=== PATIENT | male | born 1985 | race Caucasian/White ===

== ENCOUNTER 2016-08-25 18:58 | Emergency (ER) | payer SELFPAY ==
[~2016-08-25] VITALS: Ht 175.3 cm; Wt 88.0 kg
[~2016-08-25 18:58] MED LIST: ALBU.5I NEB; LEVA750T PO; PRED20 PO; VENTAER INH
[2016-08-25 19:09] VITALS: BP 109/70; PULSE 82; RESP 24; TEMP 99.1; O2SAT 100
--- NOTE | 2016-08-25 19:10 | PD ---
HPI Chief Complaint: Respiratory Distress Time Seen by Provider: 19:03 Travel History International Travel<30 days: No Contact w/Intl Traveler<30days: No Traveled to known affect area: No History of Present Illness HPI 31-year-old male with history of asthma brought in by EMS from work for an asthma attack. Patient works as a social organization professor at a restaurant. He states that he had worsening shortness of breath throughout the day today. He was given 3 albuterol treatments and IV Solu-Medrol by EMS, and upon arrival to the emergency department he reports feeling much better. He denies fevers, chills, cough, or recent illness. He smokes about a half pack of cigarettes daily. PFSH Past Medical History Hx Anticoagulant Therapy: No Asthma: Yes Cardiovascular Problems: No Chemotherapy: No Cerebrovascular Accident: No Diabetes: No Diminished Hearing: No Respiratory: Yes (ASTHMA) Past Surgical History Hysterectomy: No Oral Surgery: Yes (Jaw surgery ) Social History Alcohol Use: Yes (OCC) Tobacco Use: Yes (1 PPD) Substance Use: Yes (VICODIN) Allergies-Medications (Allergen,Severity, Reaction): Coded Allergies: No Known Allergies (Unverified , 08/25/16) Reported Meds & Prescriptions Reported Meds & Active Scripts Active Reported Suboxone Sublingual Film (Buprenorphine-Naloxone Sublingual Film) 2-0.5 Mg Film 1 Film SL Unique ID number required: Albuterol Neb (Albuterol Sulfate) 2.5 Mg/0.5 Ml Neb 2.5 Mg NEB TID NEB PRN Note: The Albuterol Sulfate Inhalation Solution is concentrated and must be diluted. Read complete instructions carefully before using. Review of Systems Except as stated in HPI: all other systems reviewed are Neg Physical Exam Narrative GENERAL: Well-developed, well-nourished, comfortable, no acute distress, speaking full sentences. SKIN: Focused skin assessment warm/dry. HEAD: Atraumatic. Normocephalic. EYES: Pupils equal and round. No scleral icterus. No injection or drainage. ENT: Mucous membranes pink and moist. NECK: Trachea midline. No JVD. CARDIOVASCULAR: Regular rate and rhythm. No murmur appreciated. RESPIRATORY: No accessory muscle use. Mild inspiratory and expiratory wheezes bilaterally. No rales or rhonchi. Breath sounds equal bilaterally. Speaking full sentences. GASTROINTESTINAL: Abdomen soft, non-tender, nondistended. Hepatic and splenic margins not palpable. NEUROLOGICAL: Awake and alert. No obvious cranial nerve deficits. Motor grossly within normal limits. Normal speech. PSYCHIATRIC: Appropriate mood and affect; insight and judgment normal. Data Data Last Documented VS Vital Signs Date Time Temp Pulse Resp B/P Pulse Ox O2 Delivery O2 Flow Rate FiO2 08/25/16 19:13 82 24 100 08/25/16 19:09 99.1 109/70 Orders Chest, Single Ap (08/25/16 ) Albuterol-Ipratropium Neb (Duoneb Neb) (08/25/16 19:15) [facility] Medical Decision Making Medical Screen Exam Complete: Yes Emergency Medical Condition: Yes Medical Record Reviewed: Yes Differential Diagnosis Asthma exacerbation, pneumonia, bronchitis, pneumothorax, PE unlikely Narrative Course Patient was counseled on smoking cessation. Vital signs reviewed. Chest x-ray: No acute disease. No significant change has occurred. The patient was given 3 DuoNeb treatments here in the emergency department with significant improvement in symptoms. He was given 3 albuterol treatments by EMS as well as IV Solu-Medrol. He feels well enough to be discharged home. He is in no respiratory distress. No retractions. States that he tried to qualify for patient assistance the last time he was here, however he does not qualify. I will give him the information to the [facility] to follow -up with. I will give him a prescription for albuterol nebulizers as he has a nebulizer machine at home as well as prednisone for the next 5 days. He was informed on when to return to the emergency department. He verbalizes understanding and agreement with plan. Diagnosis Primary Impression: Asthma exacerbation Referrals: [facility] 3 days Additional Instructions: Follow-up with a primary care physician this week. Return to the emergency department for worsening symptoms or any other concerns. Scripts Albuterol 18 GM Inh (Ventolin Hfa 18 GM Inh)90 Mcg/Act Aer2 Puff INH Q4-6H PRN ( SHORTNESS OF BREATH) #1 INHALER Ref 0 Prov:Angel Medina MD 08/25/16 Prednisone 50 Mg Tab50 Mg PO DAILY 5 Days Ref 0 Prov:Angel Medina MD 08/25/16 Albuterol Neb 2.5 Mg/3 Ml Neb2.5 Mg NEB Q4HR NEB PRN (SHORTNESS OF BREATH) #60 NEBULE Ref 0 Prov:Angel Medina MD 08/25/16 Disposition: 01 DISCHARGE HOME Condition: Stable Angel Medina MD Aug 25, 2016 19:10
[2016-08-25] MEDS: RESP: ALBUTEROL 2.5 MG/IPRATROPIUM 0.5 MG NEB (SCH) INH ×2 (19:18→19:19)
[2016-08-25] MEDS ORDERED: SUBO2MIS SL (19:19)
--- NOTE | 2016-08-25 19:27 | RADHPO ---
EXAM DATE/TIME: 08/25/2016 19:15 [facility] COMPARISON: CHEST SINGLE AP, March 30, 2016, 14:19. INDICATIONS : Patient states cough. MEDICAL HISTORY : None. SURGICAL HISTORY : None. ENCOUNTER: Initial ACUITY: 2 days PAIN SCORE: 2/10 LOCATION: Bilateral chest FINDINGS: A single view of the chest demonstrates the lungs to be symmetrically aerated without evidence of mas s, infiltrate or effusion. The cardiomediastinal contours are unremarkable. Osseous structures are intact. CONCLUSION: No acute disease. No significant change has occurred. Tien Wall MD on August 25, 2016 at 19:26 Board Certified Radiologist. This report was verified electronically.
[2016-08-25] MEDS ORDERED: VENTAER INH (20:06)
[2016-08-25] MEDS ORDERED: PRED50 PO (20:06)
[2016-08-25] MEDS ORDERED: ALBU0.08 NEB (20:06)
[2016-08-25] MEDS ORDERED: ALBUTEROL SULFATE 90 MCG/ACT HFA 8 GM INHALER INH ONE (20:15)
[2016-08-25 20:31] VITALS: BP 125/72
== END 2016-08-25 21:05 | disposition home or self-care (01) ==
LOC: PHED 18:58
DX: J45.901 Unspecified asthma with (acute) exacerbation (principal); F17.200 Nicotine dependence, unspecified, uncomplicated; Z79.899 Other long term (current) drug therapy; Z79.51 Long term (current) use of inhaled steroids
CPT/HCPCS: 71010; 94640; 94664; 99283

== ENCOUNTER 2016-09-12 22:17 | Emergency (ER) | payer SELFPAY ==
[~2016-09-12] VITALS: Ht 175.3 cm; Wt 91.0 kg
[~2016-09-12 22:17] MED LIST changes: +ALBU0.08 NEB; -LEVA750T PO; -PRED20 PO; +PRED50 PO; +SUBO2MIS SL
[2016-09-12 22:19] VITALS: BP 128/64; PULSE 106; RESP 22; TEMP 99.7; O2SAT 95
[2016-09-12 22:58] VITALS: O2SAT 93
[2016-09-12] MEDS ORDERED: SODIUM CHLORIDE 0.9% FLUSH 10 ML FLUSH IVF PRN (23:00)
[2016-09-12] MEDS ORDERED: methylPREDNISolone SOD SUCC 125 MG/2 ML VIAL IVP ONE (23:00)
--- NOTE | 2016-09-12 23:02 | PD ---
HPI Chief Complaint: Respiratory Symptoms Time Seen by Provider: 22:55 Travel History International Travel<30 days: No Contact w/Intl Traveler<30days: No Traveled to known affect area: No History of Present Illness HPI The patient is a 31-year-old male with a history of asthma and tobacco abuse who for the past few days has been wheezing. He took his nebulizer machine at home and one pill of a leftover prednisone tablet and states it is not helping and he came into the emergency department. He denies any fever but does have sweats at home. He smokes one pack a day normally. He denies any nausea, vomiting or diarrhea. PFSH Past Medical History Hx Anticoagulant Therapy: No Asthma: Yes Cardiovascular Problems: No Chemotherapy: No Cerebrovascular Accident: No Diabetes: No Diminished Hearing: No Respiratory: Yes (ASTHMA) Tetanus Vaccination: < 5 Years Influenza Vaccination: No Past Surgical History Hysterectomy: No Oral Surgery: Yes (JAW SURGERY) Social History Alcohol Use: No (NEVER) Tobacco Use: Yes (1 PPD) Substance Use: Yes (VICODIN) Allergies-Medications (Allergen,Severity, Reaction): Coded Allergies: No Known Allergies (Unverified , 09/12/16) Reported Meds & Prescriptions Reported Meds & Active Scripts Active Ventolin Hfa 18 GM Inh (Albuterol Sulfate) 90 Mcg/Act Aer 2 Puff INH Q4-6H PRN Albuterol Neb (Albuterol Sulfate) 2.5 Mg/3 Ml Neb 2.5 Mg NEB Q4HR NEB PRN Review of Systems Except as stated in HPI: all other systems reviewed are Neg Physical Exam Narrative GENERAL: The patient is alert, oriented 3 in slight respiratory distress. His vital signs show respirations of 22 and heart rate of 106 and temperature 99.7 but are otherwise normal. SKIN: Focused skin assessment warm/dry. HEAD: Atraumatic. Normocephalic. EYES: Pupils equal and round. No scleral icterus. No injection or drainage. ENT: No nasal bleeding or discharge. Mucous membranes pink and moist. NECK: Trachea midline. No JVD. CARDIOVASCULAR: Regular rate and rhythm. No murmur appreciated. RESPIRATORY: No accessory muscle use. Bilateral wheezes are heard in all lung toure. Breath sounds equal bilaterally. GASTROINTESTINAL: Abdomen soft, non-tender, nondistended. Hepatic and splenic margins not palpable. MUSCULOSKELETAL: No obvious deformities. No clubbing. No cyanosis. No edema. NEUROLOGICAL: Awake and alert. No obvious cranial nerve deficits. Motor grossly within normal limits. Normal speech. PSYCHIATRIC: Appropriate mood and affect; insight and judgment normal. Data Data Last Documented VS Vital Signs Date Time Temp Pulse Resp B/P Pulse Ox O2 Delivery O2 Flow Rate FiO2 09/12/16 23:20 20 96 Nasal Cannula 2 09/12/16 22:19 99.7 106 128/64 Orders Complete Blood Count With Diff (09/12/16 22:55) Basic Metabolic Panel (Bmp) (09/12/16 22:55) Iv Access Insert/Monitor (09/12/16 22:55) Ecg Monitoring (09/12/16 22:55) Oximetry (09/12/16 22:55) Oxygen Administration (09/12/16 22:55) Chest, Pa & Lat (09/12/16 22:55) Sodium Chloride 0.9% Flush (Ns Flush) (09/12/16 23:00) Methylprednisolone So Succ Inj (Solumedr (09/12/16 23:00) Albuterol-Ipratropium Neb (Duoneb Neb) (09/12/16 23:00) Labs Laboratory Tests Test 09/12/16 23:05 White Blood Count 9.2 TH/MM3 Red Blood Count 4.81 MIL/MM3 Hemoglobin 14.7 GM/DL Hematocrit 41.3 % Mean Corpuscular Volume 85.8 FL Mean Corpuscular Hemoglobin 30.5 PG Mean Corpuscular Hemoglobin 35.6 % Concent Red Cell Distribution Width 13.0 % Platelet Count 203 TH/MM3 Mean Platelet Volume 7.7 FL Neutrophils (%) (Auto) 84.5 % Lymphocytes (%) (Auto) 9.1 % Monocytes (%) (Auto) 2.8 % Eosinophils (%) (Auto) 3.4 % Basophils (%) (Auto) 0.2 % Neutrophils # (Auto) 7.8 TH/MM3 Lymphocytes # (Auto) 0.8 TH/MM3 Monocytes # (Auto) 0.3 TH/MM3 Eosinophils # (Auto) 0.3 TH/MM3 Basophils # (Auto) 0.0 TH/MM3 CBC Comment DIFF FINAL Differential Comment Sodium Level 140 MEQ/L Potassium Level 3.5 MEQ/L Chloride Level 104 MEQ/L Carbon Dioxide Level 27.8 MEQ/L Anion Gap 8 MEQ/L Blood Urea Nitrogen 10 MG/DL Creatinine 0.93 MG/DL Estimat Glomerular Filtration 94 ML/MIN Rate Random Glucose 99 MG/DL Calcium Level 9.2 MG/DL MDM Medical Decision Making Medical Screen Exam Complete: Yes Emergency Medical Condition: Yes Medical Record Reviewed: Yes Interpretation(s) The chest x-ray shows no acute cardiopulmonary disease. The CBC is normal. The basic metabolic profile is normal. Differential Diagnosis COPD with acute exacerbation, acute asthma, pneumonia, bronchitis Narrative Course The patient appears to have asthma with bronchitis. It is now 12:19 AM and he is still wheezing. He feels much better at this time however. Diagnosis Primary Impression: Acute asthma Additional Impression: Bronchitis Additional Instructions: As we discussed, discontinue smoking. Take the prednisone one tablet twice daily for 4 days followed by one tablet once daily for 4 days. Med/Other Pt SpecificInfo: Prescription(s) given Disposition: 01 DISCHARGE HOME Condition: Stable Arnie Astudillo MD Sep 12, 2016 23:02
[2016-09-12] MEDS: RESP: ALBUTEROL 2.5 MG/IPRATROPIUM 0.5 MG NEB (SCH) INH (23:06)
[2016-09-12 23:20] VITALS: RESP 20; O2SAT 96
[2016-09-12 23:28] LABS: AUTOMATED NEUTROPHIL # 7.8 TH/MM3 (1.8-7.7); BASOPHIL % 0.2 % (0.0-2.0); EOSINOPHIL # 0.3 TH/MM3 (0-0.4); EOSINOPHIL % 3.4 % (0.0-4.0); HEMATOCRIT 41.3 % (39.0-51.0); HEMO FLAGS DIFF FINAL; LYMPH % 9.1 % (9.0-44.0); LYMPHOCYTE # 0.8 TH/MM3 (1.0-4.8); MEAN CELL VOLUME 85.8 FL (80.0-100.0); MEAN CORPUSCULAR HEMOGLOBIN 30.5 PG (27.0-34.0); MEAN CORPUSCULAR HGB CONC 35.6 % (32.0-36.0); MONO % 2.8 % (0.0-8.0); NEUT % 84.5 % (16.0-70.0); PLATELET COUNT 203 TH/MM3 (150-450); RED BLOOD COUNT 4.81 MIL/MM3 (4.50-5.90); WHITE BLOOD COUNT 9.2 TH/MM3 (4.0-11.0)
[2016-09-12 23:41] LABS: BICARBONATE 27.8 MEQ/L (21.0-32.0); POTASSIUM 3.5 MEQ/L (3.5-5.1)
--- NOTE | 2016-09-13 00:03 | RADRPT ---
EXAM DATE/TIME: 09/12/2016 23:42 [facility] COMPARISON: CHEST SINGLE AP, August 25, 2016, 19:15. INDICATIONS : Short of breath. Right side chest pain. MEDICAL HISTORY : None. SURGICAL HISTORY : None. ENCOUNTER: Initial ACUITY: 1 day PAIN SCORE: 6/10 LOCATION: Right chest FINDINGS: PA and lateral views of the chest demonstrate the lungs to be symmetrically aerated without evidence of mass, infiltrate or effusion. The cardiomediastinal contours are unremarkable. Osseous structure s are intact. CONCLUSION: Normal examination for a patient of this age. No significant change has occurred. Tien Wall MD on September 13, 2016 at 0:00 Board Certified Radiologist. This report was verified electronically.
[2016-09-13] MEDS ORDERED: ALBUTEROL SULFATE 90 MCG/ACT HFA 8 GM INHALER INH ONE (00:30)
[2016-09-13] MEDS ORDERED: ALBUTEROL SULFATE 90 MCG/ACT HFA 18 GM INHALER INH ONE (00:30)
[2016-09-13] MEDS ORDERED: PRED50 PO (00:53)
== END 2016-09-13 01:02 | disposition home or self-care (01) ==
LOC: NEPC 22:17
DX: J45.909 Unspecified asthma, uncomplicated (principal); J40 Bronchitis, not specified as acute or chronic; F17.210 Nicotine dependence, cigarettes, uncomplicated
CPT/HCPCS: 71020; 80048; 85025; 94640; 94664; 96374; 99283; J2930

== ENCOUNTER 2017-02-18 22:47 | Emergency (ER) | payer SELFPAY ==
[~2017-02-18] VITALS: Ht 175.3 cm; Wt 90.0 kg
[~2017-02-18 22:47] MED LIST changes: -ALBU.5I NEB; -SUBO2MIS SL
[2017-02-18 22:55] VITALS: BP 113/73; PULSE 90; RESP 20; TEMP 98.8; O2SAT 96
--- NOTE | 2017-02-19 00:36 | PD ---
HPI Chief Complaint: Respiratory Distress Time Seen by Provider: 00:33 Travel History International Travel<30 days: No Contact w/Intl Traveler<30days: No Traveled to known affect area: No History of Present Illness HPI 31-year-old male with history of asthma and tobaccoism presents to the emergency department for 2 weeks of progressively worsening shortness of breath and wheezing. Patient reports he ran out of his albuterol solution for his nebulizer and his inhaler is empty. Patient's had no fever no chills no nausea no vomiting no pleuritic chest pain no chest pain no abdominal pain and no injury. Patient denies any exposure to known allergens. PFSH Past Medical History Narrative Medical Asthma, tobacco use, nursing notes reviewed Hx Anticoagulant Therapy: No Asthma: Yes Cardiovascular Problems: No Chemotherapy: No Cerebrovascular Accident: No Diabetes: No Diminished Hearing: No Respiratory: Yes (ASTHMA) Past Surgical History Hysterectomy: No Oral Surgery: Yes (JAW SURGERY) Social History Alcohol Use: No (NEVER) Tobacco Use: Yes (1 PPD) Substance Use: Yes (VICODIN) Allergies-Medications (Allergen,Severity, Reaction): Coded Allergies: No Known Allergies (Unverified , 09/12/16) Reported Meds & Prescriptions Reported Meds & Active Scripts Active Ventolin Hfa 18 GM Inh (Albuterol Sulfate) 90 Mcg/Act Aer 2 Puff INH Q4-6H PRN Albuterol Neb (Albuterol Sulfate) 2.5 Mg/3 Ml Neb 2.5 Mg NEB Q4HR NEB PRN Review of Systems Except as stated in HPI: all other systems reviewed are Neg Physical Exam Narrative GENERAL: Well-developed well-nourished male in obvious mild respiratory distress no stridor no hoarseness SKIN: Warm and dry. HEAD: Normocephalic. EYES: No scleral icterus. No injection or drainage. NECK: Supple, trachea midline. No JVD or lymphadenopathy. CARDIOVASCULAR: Regular rate and rhythm without murmurs, gallops, or rubs. RESPIRATORY: Breath sounds equal bilaterally few diffuse end expiratory wheeze. No accessory muscle use. GASTROINTESTINAL: Abdomen soft, non-tender, nondistended. MUSCULOSKELETAL: No cyanosis, or edema. BACK: Nontender without obvious deformity. No CVA tenderness. Data Data Last Documented VS Vital Signs Date Time Temp Pulse Resp B/P (MAP) Pulse Ox O2 Delivery O2 Flow Rate FiO2 02/19/17 00:45 73 20 104/78 (87) 96 Room Air 02/18/17 22:55 98.8 Orders Orders Iv Access Insert/Monitor (02/19/17 00:33) Ecg Monitoring (02/19/17 00:33) Oxygen Administration (02/19/17 00:33) Chest, Single Ap (02/19/17 00:33) Sodium Chloride 0.9% Flush (Ns Flush) (02/19/17 00:45) Methylprednisolone So Succ Inj (Solumedr (02/19/17 00:45) Albuterol-Ipratropium Neb (Duoneb Neb) (02/19/17 00:45) MDM Medical Decision Making Medical Screen Exam Complete: Yes Emergency Medical Condition: Yes Medical Record Reviewed: Yes Differential Diagnosis Exacerbation asthma bronchitis medication refill Narrative Course Patient administered 3 DuoNeb updrafts Solu-Medrol and medication refills provided After updraft treatment and Solu-Medrol administration patient is clinically markedly improved and desirous of being discharged to home; patient given refill prescriptions and encouraged to follow-up with primary care provider. Diagnosis Primary Impression: Acute asthma Additional Impression: Medication refill [facility]errals: [facility] Patient Instructions: General Instructions Additional Instructions: Increase fluid hydration Take medications as prescribed Follow-up with primary care provider Return to the emergency department for any concerns or change in condition Med/Other Pt SpecificInfo: Prescription(s) given Scripts Prednisone (Prednisone) 50 Mg Tab 50 MG PO DAILY, #5 TAB 0 Refills Prov: Diane Washington MD 02/19/17 Albuterol 18 GM Inh (Ventolin Hfa 18 GM Inh) 90 Mcg/Act Aer 2 PUFF INH Q4-6H Y for SHORTNESS OF BREATH, #1 INHALER 0 Refills Prov: Diane Washington MD 02/19/17 Albuterol Neb (Albuterol Neb) 2.5 Mg/3 Ml Neb 2.5 MG NEB Q4HR NEB Y for SHORTNESS OF BREATH, #60 NEBULE 0 Refills Prov: Diane Washington MD 02/19/17 Disposition: 01 DISCHARGE HOME Condition: Stable Diane Washington MD Feb 19, 2017 00:36
[2017-02-19 00:45] VITALS: BP 104/78; PULSE 73; RESP 20; O2SAT 96
[2017-02-19] MEDS ORDERED: methylPREDNISolone SOD SUCC 125 MG/2 ML VIAL IV PUSH ONE (00:45)
[2017-02-19] MEDS ORDERED: SODIUM CHLORIDE 0.9% FLUSH 10 ML FLUSH IVF PRN (00:45)
[2017-02-19] MEDS: RESP: ALBUTEROL 2.5 MG/IPRATROPIUM 0.5 MG NEB (SCH) INH ×3 (00:56→01:11)
--- NOTE | 2017-02-19 00:57 | RADRPT ---
EXAM DATE/TIME: 02/19/2017 00:37 [facility] COMPARISON: CHEST PA & LAT, September 12, 2016, 23:42. INDICATIONS : Shortness of breath. MEDICAL HISTORY : Asthma. SURGICAL HISTORY : None. ENCOUNTER: Initial ACUITY: 2 weeks PAIN SCORE: 0/10 LOCATION: Bilateral chest FINDINGS: A single view of the chest demonstrates the lungs to be symmetrically aerated without evidence of mas s, infiltrate or effusion. The cardiomediastinal contours are unremarkable. Osseous structures are intact. CONCLUSION: No evidence of acute cardiopulmonary disease. Boom Del Rosario MD on February 19, 2017 at 0:55 Board Certified Radiologist. This report was verified electronically.
[2017-02-19] MEDS ORDERED: VENTAER INH (01:44)
[2017-02-19] MEDS ORDERED: ALBU0.08 NEB (01:44)
[2017-02-19] MEDS ORDERED: PRED50 PO (01:45)
[2017-02-19] MEDS ORDERED: ALBUTEROL SULFATE 90 MCG/ACT HFA 8 GM INHALER INH ONE (02:00)
[2017-02-19 02:20] VITALS: BP 106/68
== END 2017-02-19 02:27 | disposition home or self-care (01) ==
LOC: PHED 22:47
DX: J45.909 Unspecified asthma, uncomplicated (principal); F17.210 Nicotine dependence, cigarettes, uncomplicated
CPT/HCPCS: 71010; 94640; 94664; 96374; 99285; J2930

== ENCOUNTER 2017-03-20 01:55 | Inpatient (IN) | payer SELFPAY ==
[2017-03-20] VITALS (14 sets, daily range): BP systolic 122–165; BP diastolic 64–98; PULSE 88–125; RESP 18–36; TEMP 95.4–97.6; O2SAT 89–100
[~2017-03-20] VITALS: Ht 175.3 cm; Wt 77.0 kg
[2017-03-20] MEDS ORDERED: LORazepam 2 MG/ML VIAL ONE (02:04)
[2017-03-20] MEDS ORDERED: SODIUM CHLORIDE 0.9% FLUSH 10 ML FLUSH IVF PRN (02:15)
[2017-03-20] MEDS ORDERED: LORazepam 2 MG/ML VIAL IV PUSH ONE (02:15)
[2017-03-20] MEDS: RESP: ALBUTEROL 2.5 MG/IPRATROPIUM 0.5 MG NEB (SCH) INH ×2 (02:22→02:23)
[2017-03-20 02:27] LABS: AUTOMATED NEUTROPHIL # 4.3 TH/MM3 (1.8-7.7); BASOPHIL # 0.1 TH/MM3 (0-0.2); BASOPHIL % 0.4 % (0.0-2.0); EOSINOPHIL # 0.9 TH/MM3 (0-0.4); EOSINOPHIL % 7.2 % (0.0-4.0); HEMATOCRIT 46.5 % (39.0-51.0); LYMPH % 50.1 % (9.0-44.0); LYMPHOCYTE # 6.1 TH/MM3 (1.0-4.8); MEAN CELL VOLUME 88.5 FL (80.0-100.0); MEAN CORPUSCULAR HEMOGLOBIN 31.4 PG (27.0-34.0); MEAN CORPUSCULAR HGB CONC 35.5 % (32.0-36.0); MONO % 6.8 % (0.0-8.0); NEUT % 35.5 % (16.0-70.0); PLATELET COUNT 230 TH/MM3 (150-450); RED BLOOD COUNT 5.25 MIL/MM3 (4.50-5.90); RED CELL DISTRIBUTION WIDTH 13.6 % (11.6-17.2); WHITE BLOOD COUNT 12.1 TH/MM3 (4.0-11.0)
[2017-03-20 02:28] LABS: HEMO FLAGS AUTO DIFF
[2017-03-20 02:37] LABS: ANION GAP 8 MEQ/L (5-15); BICARBONATE 28.6 MEQ/L (21.0-32.0); BLOOD UREA NITROGEN 18 MG/DL (7-18); CHLORIDE 105 MEQ/L (98-107); GLOMERULAR FILTRATION RATE 98 ML/MIN (>89); MAGNESIUM 2.4 MG/DL (1.5-2.5); POTASSIUM 3.8 MEQ/L (3.5-5.1); SODIUM (NA) 142 MEQ/L (136-145)
[2017-03-20 02:41] LABS: CREATINE KINASE 129 U/L (39-308)
--- NOTE | 2017-03-20 02:42 | RADRPT ---
EXAM DATE/TIME: 03/20/2017 02:15 [facility] COMPARISON: CHEST SINGLE AP, February 19, 2017, 0:37. INDICATIONS : Shortness of breath. MEDICAL HISTORY : Asthma. SURGICAL HISTORY : None. ENCOUNTER: Initial ACUITY: 1 day PAIN SCORE: 0/10 LOCATION: Bilateral chest FINDINGS: A single view of the chest demonstrates the lungs to be symmetrically aerated without evidence of mas s, infiltrate or effusion. The cardiomediastinal contours are unremarkable. Osseous structures are intact. CONCLUSION: No acute disease. Boom Connor MD on March 20, 2017 at 2:40 Board Certified Radiologist. This report was verified electronically.
[2017-03-20 02:54] LABS: CKMB 2.5 NG/ML (0.5-3.6)
--- NOTE | 2017-03-20 02:56 | PD ---
HPI Chief Complaint: Respiratory Distress Time Seen by Provider: 02:02 Travel History International Travel<30 days: No Contact w/Intl Traveler<30days: No Traveled to known affect area: No History of Present Illness HPI 31 yo M arrives by EMS 2/2 dyspnea. Pt has asthma. Three rounds albuterol en route helped marginally. + CP. Duration 2 weeks with worsening tonight. + smoking of tobacco. IV solumedrol helped marginally. EMS notes O2 sat for 94% on RA initially and increased to 100% at time of ER arrival. pt reports low back pain, chronic in nature. pt took suboxone this morning. PFSH Past Medical History Hx Anticoagulant Therapy: No Asthma: Yes Cardiovascular Problems: No Chemotherapy: No Cerebrovascular Accident: No Diabetes: No Diminished Hearing: No Respiratory: Yes (ASTHMA) Tetanus Vaccination: Unknown Influenza Vaccination: No Past Surgical History Hysterectomy: No Oral Surgery: Yes (JAW SURGERY) Social History Alcohol Use: No (NEVER) Tobacco Use: Yes (1 PPD) Substance Use: Yes (VICODIN) Allergies-Medications (Allergen,Severity, Reaction): Coded Allergies: No Known Allergies (Unverified Adverse Reaction, Unknown, 03/20/17) Reported Meds & Prescriptions Reported Meds & Active Scripts Active Ventolin Hfa 18 GM Inh (Albuterol Sulfate) 90 Mcg/Act Aer 2 Puff INH Q4-6H PRN Albuterol Neb (Albuterol Sulfate) 2.5 Mg/3 Ml Neb 2.5 Mg NEB Q4HR NEB PRN Ventolin Hfa 18 GM Inh (Albuterol Sulfate) 90 Mcg/Act Aer 2 Puff INH Q4-6H PRN Albuterol Neb (Albuterol Sulfate) 2.5 Mg/3 Ml Neb 2.5 Mg NEB Q4HR NEB PRN Review of Systems Except as stated in HPI: all other systems reviewed are Neg Physical Exam Narrative GENERAL: 31 yo M, WNWD, moderate to severe respiratory distress SKIN: Warm and dry. HEAD: Atraumatic. Normocephalic. EYES: Pupils equal and round. No scleral icterus. No injection or drainage. ENT: No nasal bleeding or discharge. Mucous membranes pink and moist. NECK: Trachea midline. No JVD. CARDIOVASCULAR: Tachycardia. Regular rhythm. RESPIRATORY: Tachypnea. Wheezing. Accessory muscle use. GASTROINTESTINAL: Abdomen soft, non-tender, nondistended. Hepatic and splenic margins not palpable. MUSCULOSKELETAL: Extremities without clubbing, cyanosis, or edema. No obvious deformities. NEUROLOGICAL: Awake and alert. No obvious cranial nerve deficits. Motor grossly within normal limits. Five out of 5 muscle strength in the arms and legs. Normal speech. PSYCHIATRIC: Appropriate mood and affect; insight and judgment normal. Data Data Last Documented VS Vital Signs Date Time Temp Pulse Resp B/P (MAP) Pulse Ox O2 Delivery O2 Flow Rate FiO2 03/20/17 05:42 106 22 122/69 (86) 94 Nasal Cannula 3.00 03/20/17 02:49 60 03/20/17 02:04 97.3 VS reviewed Orders Orders Complete Blood Count With Diff (03/20/17 02:02) Basic Metabolic Panel (Bmp) (03/20/17 02:02) Magnesium (Mg) (03/20/17 02:02) Ckmb (Isoenzyme) Profile (03/20/17 02:02) Troponin I (03/20/17 02:02) Arterial Blood Gas (Abg) (03/20/17 02:02) Iv Access Insert/Monitor (03/20/17 02:02) Electrocardiogram (03/20/17 02:02) Ecg Monitoring (03/20/17 02:02) Oximetry (03/20/17 02:02) Oxygen Administration (03/20/17 02:02) Chest, Single Ap (03/20/17 02:02) Sodium Chloride 0.9% Flush (Ns Flush) (03/20/17 02:15) Albuterol-Ipratropium Neb (Duoneb Neb) (03/20/17 02:15) Resp Bipap / Cpap Non Invas Vt (03/20/17 02:02) Lorazepam Inj (Ativan Inj) (03/20/17 02:15) Lorazepam Inj (Ativan Inj) (03/20/17 02:04) CKMB (03/20/17 02:05) CKMB% (03/20/17 02:05) Drug Screen, Random Urine (03/20/17 05:46) Labs Laboratory Tests Test 03/20/17 02:05 03/20/17 02:24 White Blood Count 12.1 TH/MM3 Red Blood Count 5.25 MIL/MM3 Hemoglobin 16.5 GM/DL Hematocrit 46.5 % Mean Corpuscular Volume 88.5 FL Mean Corpuscular Hemoglobin 31.4 PG Mean Corpuscular Hemoglobin Concent 35.5 % Red Cell Distribution Width 13.6 % Platelet Count 230 TH/MM3 Mean Platelet Volume 7.8 FL Neutrophils (%) (Auto) 35.5 % Lymphocytes (%) (Auto) 50.1 % Monocytes (%) (Auto) 6.8 % Eosinophils (%) (Auto) 7.2 % Basophils (%) (Auto) 0.4 % Neutrophils # (Auto) 4.3 TH/MM3 Lymphocytes # (Auto) 6.1 TH/MM3 Monocytes # (Auto) 0.8 TH/MM3 Eosinophils # (Auto) 0.9 TH/MM3 Basophils # (Auto) 0.1 TH/MM3 CBC Comment AUTO DIFF Differential Total Cells Counted 100 Neutrophils % (Manual) 39 % Band Neutrophils % 6 % Lymphocytes % 36 % Monocytes % 4 % Eosinophils % 8 % Neutrophils # (Manual) 5.4 TH/MM3 Differential Comment FINAL DIFF MANUAL Atypical Lymphocytes 7 % Platelet Estimate NORMAL Platelet Morphology Comment NORMAL Blood Urea Nitrogen 18 MG/DL Creatinine 0.90 MG/DL Random Glucose 93 MG/DL Calcium Level 9.0 MG/DL Magnesium Level 2.4 MG/DL Sodium Level 142 MEQ/L Potassium Level 3.8 MEQ/L Chloride Level 105 MEQ/L Carbon Dioxide Level 28.6 MEQ/L Anion Gap 8 MEQ/L Estimat Glomerular Filtration Rate 98 ML/MIN Total Creatine Kinase 129 U/L Creatine Kinase MB 2.5 NG/ML Troponin I LESS THAN 0.02 NG/ML Blood Gas Ventilator Setting MDM Medical Decision Making Medical Screen Exam Complete: Yes Emergency Medical Condition: Yes Medical Record Reviewed: Yes Interpretation(s) CBC & BMP Diagram 03/20/17 02:05 Calcium Level 9.0, Magnesium Level 2.4 Tn < 0.02 Differential Diagnosis asthma, pna, ptx Narrative Course bipap started upon ED arrival ativan given pt on bipap for approx 3 hours with o2 sats approaching 100% pt ambulated in pod and o2 sat 96% on ra upon returning to room shortly thereafter desat to 86% on ra nc started admission to [facility] d/w dr contreras Diagnosis Primary Impression: Hypoxemia Additional Impression: Asthma Qualified Codes: J45.998 - Other asthma Admitting Information Admitting Physician Requests: Observation Abraham Ramos MD Mar 20, 2017 02:56
[2017-03-20 03:09] LABS: BLOOD GAS BASE EXCESS 1.6 mmol/L (-2-2); BLOOD GAS CARBOXYHEMOGLOBIN 1.8 % (0-4); BLOOD GAS HCO3 26 mmol/L (22-26); BLOOD GAS METHEMOGLOBIN 0.6 % (0-2); BLOOD GAS O2 HGB SATURATION 95 % (90-100); BLOOD GAS OXYGEN CONTENT 20.9 Vol % (12.0-20.0); BLOOD GAS PCO2 45 mmHg (38-42); BLOOD GAS PO2 92 mmHG (61-120); BLOOD GAS TOTAL HGB 15.6 G/DL (12.0-16.0); CRITICAL VALUE NO; TEMP CORR TO 98.6
[2017-03-20 03:10] LABS: DRAW SITE LT RADIAL; FIO2 50 %; NUMBER OF ARTERIAL PUNCTURES 1; OXYGEN DEVICE BIPAP; STAT YES; ULNAR PULSE PRESENT
[2017-03-20 03:19] LABS: ATYPICAL LYMPHOCYTES 7 % (0-0); BANDS 6 % (0-6); EOSINOPHILS 8 % (0-4); NEUTROPHIL # MANUAL DIFF 5.4 TH/MM3 (1.8-7.7); PLATELET ESTIMATE SMEAR NORMAL (NORMAL); PLATELET MORPHOLOGY NORMAL (NORMAL); POLYS (SEG NEUTROPHILS) 39 % (16-70); SCAN/DIFF FINAL DIFF MANUAL; WBC DIFF SAMPLE 100
[2017-03-20] MEDS ORDERED: LACTULOSE SYRUP 20 GM/30 ML CUP PO PRN (06:00)
[2017-03-20] MEDS ORDERED: MAGNESIUM HYDROXIDE SUSP 30 ML CUP PO PRN (06:00)
[2017-03-20] MEDS ORDERED: SENNOSIDES 8.6 MG TAB PO PRN (06:00)
[2017-03-20] MEDS ORDERED: BISACODYL 10 MG SUPP RECTAL PRN (06:00)
[2017-03-20] MEDS ORDERED: NALOXONE HCL 0.4 MG/ML AMP IV PUSH PRN (06:00)
[2017-03-20] MEDS ORDERED: SODIUM CHLORIDE 0.9% FLUSH 10 ML FLUSH IV FLUSH PRN (06:00)
[2017-03-20] MEDS ORDERED: AZITHROMYCIN 250 MG TAB PO SCH (06:00)
--- NOTE | 2017-03-20 06:49 | HHI.HP ---
HPI Service [facility] Primary Care Physician No Primary Care Physician Admission Diagnosis HYPOXEMIA Diagnoses: (1) Acute hypercapnic respiratory failure Chief Complaint: Shortness of breath Travel History International Travel<30 Days: No Contact w/Intl Traveler <30 Da: No Traveled to Known Affected Are: No History of Present Illness Mr. Glez is a 31 y/o male with a history of asthma who presented to the ED for shortness of breath. He states his symptoms have been going on for "a couple of weeks". Last night, his treatments at home failed to alleviate symptoms Denies fever, chills, nausea, vomiting, constipation, or diarrhea. Reports some lightheadedness The patient reports Suboxone use The patient has multiple pets including cat/kitten at home. Has had cat For about a year. The cat just had babies. Patient says he is allergic to the cat. Says the cat causes sneezing, itchy watery eyes if he is around too much. 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 He is sneezing in the room. Denies any chest pain. Denies any nausea or vomiting. Denies any fevers or chills. Review of Systems Except as stated in HPI: all other systems reviewed are Neg Past Family Social History Past Medical History Asthma . Past Surgical History Dental surgery . Reported Medications Nebulizers Inhaler . Allergies: Coded Allergies: No Known Allergies (Unverified Allergy, Unknown, 03/20/17) Active Ordered Medications Current Medications Medications (Trade) Dose Ordered Sig/Scot Route Start Time Stop Time Status Last Admin (NS Flush) 2 ml UNSCH PRN IV FLUSH 03/20/17 06:00 (NS Flush) 2 ml BID IV FLUSH 03/20/17 09:00 (Narcan Inj) 0.4 mg UNSCH PRN IV PUSH 03/20/17 06:00 (Milk Of Magnesia Liq) 30 ml Q12H PRN PO 03/20/17 06:00 (Senokot) 17.2 mg Q12H PRN PO 03/20/17 06:00 (Dulcolax Supp) 10 mg DAILY PRN RECTAL 03/20/17 06:00 (Lactulose Liq) 30 ml DAILY PRN PO 03/20/17 06:00 (Albuterol Neb) 2.5 mg Q2HR NEB PRN INH 03/20/17 06:00 (Deltasone) 40 mg DAILY PO 03/20/17 09:00 (Zithromax) 500 mg Taper DAILY PO 03/20/17 06:00 03/25/17 05:59 . Family History Denies family history of any significant illness Social History Tobacco: smokes 1/2 - 1 PPD Alcohol: denies Illicit Drugs: former illicit drug use, rare marijuana use Stay at home dad; has two dogs and a cat with kittens . Physical Exam Vital Signs Vital Signs Date Time Temp Pulse Resp B/P (MAP) Pulse Ox O2 Delivery O2 Flow Rate FiO2 03/20/17 06:15 03/20/17 05:42 106 22 122/69 (86) 94 Nasal Cannula 3.00 03/20/17 05:35 89 Room Air 03/20/17 05:31 94 Room Air 03/20/17 04:50 96 Nasal Cannula 3.00 03/20/17 03:56 98 20 163/86 (111) 98 BiPAP 03/20/17 02:49 95 22 139/81 (100) 99 BiPAP 60 03/20/17 02:10 100 50 03/20/17 02:07 99 BiPAP 50 03/20/17 02:04 97.3 165/98 (120) 03/20/17 01:59 125 36 94 Room Air Physical Exam GENERAL: This is a well-nourished, well-developed patient, in no apparent distress. SKIN: No rashes, ecchymoses or lesions. Cool and dry. HEAD: Atraumatic. Normocephalic. No temporal or scalp tenderness. EYES: Pupils equal round and reactive. Extraocular motions intact. No scleral icterus. No injection or drainage. ENT: Nose without bleeding, purulent drainage. Airway patent. NECK: Trachea midline. No JVD or lymphadenopathy. Supple, nontender, no meningeal signs. CARDIOVASCULAR: Regular rate and rhythm without murmurs, gallops, or rubs. RESPIRATORY: Bilateral wheezing. No rales, or rhonchi. GASTROINTESTINAL: Abdomen soft, non-tender, nondistended. No guarding. MUSCULOSKELETAL: Extremities without clubbing, cyanosis, or edema. No calf tenderness. NEUROLOGICAL: Awake and alert. Motor and sensory grossly within normal limits. Normal speech. . Laboratory Laboratory Tests Test 03/20/17 02:05 03/20/17 02:24 White Blood Count 12.1 Red Blood Count 5.25 Hemoglobin 16.5 Hematocrit 46.5 Mean Corpuscular Volume 88.5 Mean Corpuscular Hemoglobin 31.4 Mean Corpuscular Hemoglobin Concent 35.5 Red Cell Distribution Width 13.6 Platelet Count 230 Mean Platelet Volume 7.8 Neutrophils (%) (Auto) 35.5 Lymphocytes (%) (Auto) 50.1 Monocytes (%) (Auto) 6.8 Eosinophils (%) (Auto) 7.2 Basophils (%) (Auto) 0.4 Neutrophils # (Auto) 4.3 Lymphocytes # (Auto) 6.1 Monocytes # (Auto) 0.8 Eosinophils # (Auto) 0.9 Basophils # (Auto) 0.1 CBC Comment AUTO DIFF Differential Total Cells Counted 100 Neutrophils % (Manual) 39 Band Neutrophils % 6 Lymphocytes % 36 Monocytes % 4 Eosinophils % 8 Neutrophils # (Manual) 5.4 Differential Comment FINAL DIFF MANUAL Atypical Lymphocytes 7 Platelet Estimate NORMAL Platelet Morphology Comment NORMAL Blood Urea Nitrogen 18 Creatinine 0.90 Random Glucose 93 Calcium Level 9.0 Magnesium Level 2.4 Sodium Level 142 Potassium Level 3.8 Chloride Level 105 Carbon Dioxide Level 28.6 Anion Gap 8 Estimat Glomerular Filtration Rate 98 Total Creatine Kinase 129 Creatine Kinase MB 2.5 Troponin I LESS THAN 0.02 Blood Gas Puncture Site LT RADIAL Blood Gas Patient Temperature 98.6 Blood Gas HCO3 26 Blood Gas Base Excess 1.6 Blood Gas Oxygen Saturation 95 Arterial Blood pH 7.38 Arterial Blood Partial Pressure CO2 45 Arterial Blood Partial Pressure O2 92 Arterial Blood Oxygen Content 20.9 Arterial Blood Carboxyhemoglobin 1.8 Arterial Blood Methemoglobin 0.6 Blood Gas Hemoglobin 15.6 Oxygen Delivery Device BIPAP Blood Gas Ventilator Setting Blood Gas Inspired Oxygen 50 Date/Time Source Procedure Growth Status 03/20/17 06:00 Nasal Washing Influenza Types A,B Antigen (KEYON) - Final NEGATIVE FOR FLU A AND B ANTIGEN.... Complete Result Diagram: 03/20/1720403/20/17204 Imaging Last Impressions Chest X-Ray 03/20/17201 Signed Impressions: Service Date/Time: Monday, March 20, 2017 02:15 - CONCLUSION: No acute disease. Boom Connor MD . Caprini VTE Risk Assessment Caprini VTE Risk Assessment: No/Low Risk (score <= 1) Caprini Risk Assessment Model Point Value = 1 Point Value = 2 Point Value = 3 Point Value = 5 Age 41-60 Minor surgery BMI > 25 kg/m2 Swollen legs Varicose veins or History of unexplained or recurrent spontaneous Oral contraceptives or hormone replacement Sepsis (< 1 month) Serious lung disease, including pneumonia (< 1 month) Abnormal pulmonary function Acute myocardial infarction Congestive heart failure (< 1 month) History of inflammatory bowel disease Medical patient at bed rest Age 61-74 Arthroscopic surgery Major open surgery (> 45 min) Laparoscopic surgery (> 45 min) Malignancy Confined to bed (> 72 hours) Immobilizing plaster cast Central venous access Age >= 75 History of VTE Family history of VTE Factor V Leiden Prothrombin [id number] Lupus anticoagulant Anticardiolipin antibodies Elevated serum homocysteine Heparin-induced thrombocytopenia Other congenital or acquired thrombophilia Stroke (< 1 month) Elective arthroplasty Hip, pelvis, or leg fracture Acute spinal cord injury (< 1 month) Prophylaxis Regimen Total Risk Factor Score Risk Level Prophylaxis Regimen 0-1 Low Early ambulation 2 Moderate Order ONE of the following: *Sequential Compression Device (SCD) *Heparin 5000 units SQ BID 3-4 Higher Order ONE of the following medications: *Heparin 5000 units SQ TID *Enoxaparin/Lovenox 40 mg SQ daily (WT < 150 kg, CrCl > 30 mL/min) *Enoxaparin/Lovenox 30 mg SQ daily (WT < 150 kg, CrCl > 10-29 mL/min) *Enoxaparin/Lovenox 30 mg SQ BID (WT < 150 kg, CrCl > 30 mL/min) AND/OR *Sequential Compression Device (SCD) 5 or more Highest Order ONE of the following medications: *Heparin 5000 units SQ TID (Preferred with Epidurals) *Enoxaparin/Lovenox 40 mg SQ daily (WT < 150 kg, CrCl > 30 mL/min) *Enoxaparin/Lovenox 30 mg SQ daily (WT < 150 kg, CrCl > 10-29 mL/min) *Enoxaparin/Lovenox 30 mg SQ BID (WT < 150 kg, CrCl > 30 mL/min) AND *Sequential Compression Device (SCD) Assessment and Plan Problem List: (1) Acute hypercapnic respiratory failure ICD Code: J96.02 - Acute respiratory failure with hypercapnia Assessment and Plan //Acute hypercapnic respiratory failure -Chest x-ray review with no acute findings. - required BiPap in the ED -ABG reviewed with hypercapnia, PCO2 45 - Albuterol nebulizers q2h PRN shortness of breath. Prednisone taper. - recommend that the patient no longer home a cat/kittens, and quit smoking -Patient could benefit from Singulair, as well as an antihistamine such as Claritin upon going home. //Tobacco abuse. Cessation counseling strongly advised. Discussed Condition With Patient, ED physician. Physician Certification 2 Midnight Certification Type: Admission for Inpatient Services Order for Inpatient Services The services are ordered in accordance with Medicare regulations or non- Medicare payer requirements, as applicable. In the case of services not specified as inpatient-only, they are appropriately provided as inpatient services in accordance with the 2-midnight benchmark. Estimated LOS (days): 2 days is the estimated time the patient will need to remain in the hospital, assuming treatment plan goals are met and no additional complications. Post-Hospital Plan: Home Donnell Wasserman MD Mar 20, 2017 06:49
[2017-03-20] MEDS ORDERED: predniSONE 20 MG TAB PO SCH (09:00)
[2017-03-20] MEDS ORDERED: SODIUM CHLORIDE 0.9% FLUSH 10 ML FLUSH IV FLUSH SCH (09:00)
[2017-03-20] MEDS: RESP: ALBUTEROL 2.5 MG/3 ML NEB (PRN) INH ×2 (13:25→18:11)
--- NOTE | 2017-03-20 15:28 | EKG ---
Date Performed: 03/20/2017 Time Performed: 02:07:37 PTAGE: 31 years EKG: Sinus rhythm WITH SINUS ARRHYTHMIA NORMAL ECG NO PREVIOUS TRACING DOCTOR: Zaid Tena Interpretating Date/Time 03/20/2017 15:28:14
--- NOTE | 2017-03-20 18:59 | HHI.PR ---
Addendum to Inpatient Note Addendum Reason: Additional Documentation Additional Information The patient is awake and alert, not in respiratory distress. Denies shortness of breath, chest pain. States he was able to get up to the restroom without feeling short of breath or dyspneic. On exam the patient is awake alert oriented 3, nonacute distress lying in bed, lungs are clear to auscultation and have good air movement. Discussed with the patient and he would like to be discharged tonight. I will discharge him on Symbicort, Singulair, prednisone taper, albuterol inhaler and DuoNeb treatments as needed. Patient was advised on quitting smoking and to not have cats at home. Discharge patient to home Condition on discharge: Improved Regular Diet as tolerated Ad Sruthi activity Rx written: Budesonide-Formoterol Inh 80-4.5 Mcg/Act Aero 2 puffs inhaled every 12 hours. Montelukast 10 mg by mouth daily at bedtime. Prednisone 20 mg by mouth taper dose as directed. Follow-up with primary care physician Avila Oglesby MD Mar 20, 2017 18:59
[2017-03-20] MEDS ORDERED: ALBU0.08 NEB (19:41)
[2017-03-20] MEDS ORDERED: PRED20 PO (19:41)
[2017-03-20] MEDS ORDERED: VENTAER INH (19:41)
[2017-03-20] MEDS ORDERED: SYMB80AE INH (19:46)
[2017-03-20] MEDS ORDERED: MONT10TA2 PO (19:46)
--- NOTE | 2017-03-20 19:50 | HHI.DCPOC ---
Discharge Care Plan Diagnosis: (1) Acute hypercapnic respiratory failure (2) Asthma exacerbation (3) Hypoxemia Goals to Promote Your Health * To prevent worsening of your condition and complications * To maintain your health at the optimal level Directions to Meet Your Goals Take your medications as prescribed Follow your dietary instruction Follow activity as directed Keep your appointments as scheduled Take your immunizations and boosters as scheduled If your symptoms worsen call your PCP, if no PCP go to Urgent Care Center or Emergency Room Smoking is Dangerous to Your Health. Avoid second hand smoke Call the 24-hour hour crisis hotline for domestic abuse at Avila Oglesby MD Mar 20, 2017 19:50
[2017-03-20] MEDS ORDERED: AZIT500T2 PO (19:52)
== END 2017-03-20 22:09 | disposition home or self-care (01) | DRG 189 ==
LOC: NEPC 01:55 → NEDA 05:55 → N07A 06:35
PROVIDERS: ADMIT Hospitalist; ATTEND Hospitalist
PROC: 5A09357 Assistance with Respiratory Ventilation, Less than 24 Consecutive Hours, Continuous Positive Airway Pressure (ICD-10-PCS; principal; 2017-03-20)
DX: J96.01 Acute respiratory failure with hypoxia (principal); J45.901 Unspecified asthma with (acute) exacerbation; J96.02 Acute respiratory failure with hypercapnia; F12.90 Cannabis use, unspecified, uncomplicated; Z72.0 Tobacco use
CPT/HCPCS: 36600; 71010; 80048; 80307; 82550; 82552; 82805; 83735; 84484; 85007; 85027; 87804; 93005; 94002; 94640; 94664; J2060; J7512; J7613

== ENCOUNTER 2017-04-22 11:26 | Emergency (ER) | payer SELFPAY ==
[~2017-04-22] VITALS: Ht 175.3 cm; Wt 84.0 kg
[~2017-04-22 11:26] MED LIST changes: +AZIT500T2 PO; +MONT10TA2 PO; +PRED20 PO; -PRED50 PO; +SYMB80AE INH
[2017-04-22 11:28] VITALS: BP 145/87; PULSE 122; RESP 26; TEMP 98; O2SAT 94
--- NOTE | 2017-04-22 11:38 | PD ---
HPI Chief Complaint: shortness of breath Time Seen by Provider: 11:31 Travel History International Travel<30 days: No Contact w/Intl Traveler<30days: No Traveled to known affect area: No History of Present Illness HPI This 31-year-old patient is brought by ambulance for shortness of breath. He's been sick for several days with cough and shortness of breath. He has a history of asthma. He apparently still smokes a pack a day. Been sick for several days with cough and congestion. Paramedics found him very short of breath and given him Solu-Medrol, 3 albuterol treatments and a subcutaneous dose of epinephrine. He says he finished a course of steroids last week. He uses an albuterol inhaler and nebulizer PFS Past Medical History Hx Anticoagulant Therapy: No Asthma: Yes Cardiovascular Problems: No Chemotherapy: No Cerebrovascular Accident: No Diabetes: No Diminished Hearing: No Respiratory: Yes (ASTHMA) Past Surgical History Hysterectomy: No Oral Surgery: Yes (JAW SURGERY) Social History Alcohol Use: No (NEVER) Tobacco Use: Yes (1 PPD) Substance Use: Yes (VICODIN) Allergies-Medications (Allergen,Severity, Reaction): Coded Allergies: No Known Allergies (Unverified Allergy, Unknown, 03/20/17) Reported Meds & Prescriptions Reported Meds & Active Scripts Active Azithromycin 500 Mg Tab 500 Mg PO DAILY Symbicort Inh (Budesonide/Formoterol Fumarate) 80-4.5 Mcg/Act Aero 2 Puff INH Q12HR Singulair (Montelukast Sodium) 10 Mg Tab 10 Mg PO HS Prednisone 20 Mg Tab 20 Mg PO DIRECTED 40 MG daily x 3 days, then 20 MG daily x 3 days, then 10 MG daily x 3 days Ventolin Hfa 18 GM Inh (Albuterol Sulfate) 90 Mcg/Act Aer 2 Puff INH Q4-6H PRN Albuterol Neb (Albuterol Sulfate) 2.5 Mg/3 Ml Neb 2.5 Mg NEB Q4HR NEB PRN Review of Systems General / Constitutional: No: Fever, Chills Eyes: No: Diploplia, Blurred Vision HENT: No: Headaches, Vertigo Cardiovascular: No: Chest Pain or Discomfort Respiratory: Positive: Cough, Shortness of Breath, Wheezing Gastrointestinal: No: Vomiting, Diarrhea Genitourinary: No: Urgency, Frequency Musculoskeletal: No: Myalgias, Arthralgias Skin: No Rash, No Itching Neurologic: No: Weakness, Dizziness Hematologic/Lymphatic: No: Easy Bruising Physical Exam Narrative GENERAL: On arrival the patient is in moderate respiratory distress SKIN: Focused skin assessment warm/dry. HEAD: Atraumatic. Normocephalic. EYES: Pupils equal and round. No scleral icterus. No injection or drainage. ENT: No nasal bleeding or discharge. Mucous membranes pink and moist. NECK: Trachea midline. No JVD. CARDIOVASCULAR: Regular rate and rhythm. No murmur appreciated. RESPIRATORY: accessory muscle use. Scattered wheezes are present. Breath sounds equal bilaterally. GASTROINTESTINAL: Abdomen soft, non-tender, nondistended. Hepatic and splenic margins not palpable. MUSCULOSKELETAL: No obvious deformities. No clubbing. No cyanosis. No edema. NEUROLOGICAL: Awake and alert. No obvious cranial nerve deficits. Motor grossly within normal limits. Normal speech. PSYCHIATRIC: Appropriate mood and affect; insight and judgment normal. Data Data Last Documented VS Vital Signs Date Time Temp Pulse Resp B/P (MAP) Pulse Ox O2 Delivery O2 Flow Rate FiO2 04/22/17 13:07 90 22 107/56 (73) 93 Room Air 04/22/17 12:00 98.0 Orders Orders Complete Blood Count With Diff (04/22/17 11:31) Comprehensive Metabolic Panel (04/22/17 11:31) Blood Culture (04/22/17 11:31) Urinalysis - C+S If Indicated (04/22/17 11:31) Influenzae A/B Antigen (04/22/17 11:31) Chest, Single Ap (04/22/17 11:31) Labs Laboratory Tests Test 04/22/17 11:45 White Blood Count 13.7 TH/MM3 Red Blood Count 5.43 MIL/MM3 Hemoglobin 16.5 GM/DL Hematocrit 48.5 % Mean Corpuscular Volume 89.2 FL Mean Corpuscular Hemoglobin 30.3 PG Mean Corpuscular Hemoglobin Concent 34.0 % Red Cell Distribution Width 12.7 % Platelet Count 286 TH/MM3 Mean Platelet Volume 7.6 FL Neutrophils (%) (Auto) 56.9 % Lymphocytes (%) (Auto) 31.0 % Monocytes (%) (Auto) 4.6 % Eosinophils (%) (Auto) 7.2 % Basophils (%) (Auto) 0.3 % Neutrophils # (Auto) 7.8 TH/MM3 Lymphocytes # (Auto) 4.3 TH/MM3 Monocytes # (Auto) 0.6 TH/MM3 Eosinophils # (Auto) 1.0 TH/MM3 Basophils # (Auto) 0.0 TH/MM3 CBC Comment DIFF FINAL Differential Comment Blood Urea Nitrogen 12 MG/DL Creatinine 0.98 MG/DL Random Glucose 171 MG/DL Total Protein 7.5 GM/DL Albumin 4.3 GM/DL Calcium Level 9.2 MG/DL Alkaline Phosphatase 61 U/L Aspartate Amino Transf (AST/SGOT) 16 U/L Alanine Aminotransferase (ALT/SGPT) 35 U/L Total Bilirubin 0.7 MG/DL Sodium Level 138 MEQ/L Potassium Level 3.1 MEQ/L Chloride Level 102 MEQ/L Carbon Dioxide Level 26.1 MEQ/L Anion Gap 10 MEQ/L Estimat Glomerular Filtration Rate 89 ML/MIN [facility] Medical Decision Making Medical Screen Exam Complete: Yes Emergency Medical Condition: Yes Medical Record Reviewed: Yes Differential Diagnosis Differential includes pneumonia, asthma exacerbation, bronchitis Narrative Course Patient has received 3 treatments en route as well as subcutaneous epinephrine and Solu-Medrol. We did not administer any additional medication. During a period of observation the patient's respiratory distress has resolved. He has been resting comfortably. He is stable for discharge. He has been given Solu- Medrol by paramedics. I will prescribe prednisone Diagnosis Primary Impression: Asthma exacerbation Qualified Codes: J45.901 - Unspecified asthma with (acute) exacerbation Scripts Prednisone (Prednisone) 20 Mg Tab 20 MG PO DIRECTED, #24 TAB 0 Refills Take 60 MG daily x 4 days, then 40 MG x 4 days, then 20 MG daily x 4 days. Prov: Kostas Nelson MD 04/22/17 Albuterol 18 GM Inh (Ventolin Hfa 18 GM Inh) 90 Mcg/Act Aer 2 PUFF INH Q4-6H Y for SHORTNESS OF BREATH, #1 INHALER 0 Refills Prov: Kostas Nelson MD 04/22/17 Albuterol Neb (Albuterol Neb) 2.5 Mg/3 Ml Neb 2.5 MG NEB Q4HR NEB Y for SHORTNESS OF BREATH, #60 NEBULE 0 Refills Prov: Kostas Nelson MD 04/22/17 Disposition: 01 DISCHARGE HOME Condition: Stable Kostas Nelson MD Apr 22, 2017 11:38
[2017-04-22 11:56] LABS: AUTOMATED NEUTROPHIL # 7.8 TH/MM3 (1.8-7.7); BASOPHIL % 0.3 % (0.0-2.0); EOSINOPHIL % 7.2 % (0.0-4.0); HEMATOCRIT 48.5 % (39.0-51.0); HEMO FLAGS DIFF FINAL; LYMPHOCYTE # 4.3 TH/MM3 (1.0-4.8); MEAN CELL VOLUME 89.2 FL (80.0-100.0); MEAN CORPUSCULAR HEMOGLOBIN 30.3 PG (27.0-34.0); MONO % 4.6 % (0.0-8.0); NEUT % 56.9 % (16.0-70.0); PLATELET COUNT 286 TH/MM3 (150-450); RED BLOOD COUNT 5.43 MIL/MM3 (4.50-5.90); RED CELL DISTRIBUTION WIDTH 12.7 % (11.6-17.2); WHITE BLOOD COUNT 13.7 TH/MM3 (4.0-11.0)
[2017-04-22 12:00] VITALS: BP 107/58; PULSE 88; RESP 24; TEMP 98; O2SAT 94
[2017-04-22 12:03] LABS: CHLORIDE 102 MEQ/L (98-107); POTASSIUM 3.1 MEQ/L (3.5-5.1); SODIUM (NA) 138 MEQ/L (136-145)
--- NOTE | 2017-04-22 12:03 | RADRPT ---
EXAM DATE/TIME: 04/22/2017 11:50 [facility] COMPARISON: CHEST SINGLE AP, March 20, 2017, 2:15. INDICATIONS : Shortness of breath, coughing. MEDICAL HISTORY : Asthma. Smoker. SURGICAL HISTORY : None. ENCOUNTER: Initial ACUITY: 2 weeks PAIN SCORE: 0/10 LOCATION: Bilateral chest FINDINGS: Portable AP view of the chest demonstrates a normal-sized cardiac silhouette. No effusion, consolidat ion, or pneumothorax is visualized. The bones and soft tissues demonstrate no acute abnormality. CONCLUSION: No acute cardiopulmonary abnormality is identified. Boom Donahue MD on April 22, 2017 at 12:00 Board Certified Radiologist. This report was verified electronically.
[2017-04-22 12:07] LABS: ANION GAP 10 MEQ/L (5-15); BICARBONATE 26.1 MEQ/L (21.0-32.0); BLOOD UREA NITROGEN 12 MG/DL (7-18)
[2017-04-22 12:10] LABS: ALT (GPT) 35 U/L (12-78); AST (GOT) 16 U/L (15-37); GLOMERULAR FILTRATION RATE 89 ML/MIN (>89)
[2017-04-22 12:12] LABS: TOTAL BILIRUBIN ADULT 0.7 MG/DL (0.2-1.0)
[2017-04-22 12:13] LABS: ALKALINE PHOSPHATASE 61 U/L (45-117)
[2017-04-22 13:07] VITALS: BP 107/56; PULSE 90; RESP 22; O2SAT 93
[2017-04-22] MEDS ORDERED: ALBU0.08 NEB (13:26)
[2017-04-22] MEDS ORDERED: VENTAER INH (13:26)
[2017-04-22] MEDS ORDERED: PRED20 PO (13:26)
[2017-04-22 14:02] VITALS: BP 107/73
== END 2017-04-22 14:08 | disposition home or self-care (01) ==
LOC: PHED 11:26
DX: J45.901 Unspecified asthma with (acute) exacerbation (principal); F17.210 Nicotine dependence, cigarettes, uncomplicated
CPT/HCPCS: 71010; 80053; 85025; 87040; 87804; 99284

== ENCOUNTER 2017-05-04 23:49 | Inpatient (IN) | payer MEDICAID ==
[~2017-05-04] VITALS: Ht 172.7 cm; Wt 90.5 kg
[2017-05-04 23:50] VITALS: O2SAT 100
[2017-05-04 23:55] VITALS: BP 157/96; PULSE 128; RESP 23; O2SAT 100
[2017-05-05] VITALS (23 sets, daily range): BP systolic 110–181; BP diastolic 56–107; PULSE 84–138; RESP 14–24; TEMP 97–101.9; O2SAT 95–100
[2017-05-05] MEDS ORDERED: SODIUM CHLORIDE 0.9% FLUSH 10 ML FLUSH IVF PRN ×2 (00:15→01:15)
[2017-05-05] MEDS ORDERED: SODIUM CHLOR 0.9% 1000 ML INJ 1,000 ML IV ONE ×3 (00:18)
[2017-05-05] MEDS ORDERED: AZITHROMYCIN INJ 500 MG in SODIUM CHLOR 0.9% 250 ML INJ 250 ML IV STA (00:18)
[2017-05-05] MEDS ORDERED: cefTRIAXone INJ 2,000 MG in SODIUM CHLORIDE 0.9% INJ 100 ML IV STA (00:18)
--- NOTE | 2017-05-05 00:25 | RADRPT ---
EXAM DATE/TIME: 05/05/2017 00:15 [facility] COMPARISON: CHEST SINGLE AP, April 22, 2017, 11:50. INDICATIONS : Short of breath. MEDICAL HISTORY : Asthma. SURGICAL HISTORY : None. ENCOUNTER: Initial ACUITY: 1 day PAIN SCORE: 0/10 LOCATION: Bilateral chest FINDINGS: A single view of the chest demonstrates the lungs to be symmetrically aerated without evidence of mas s, infiltrate or effusion. The cardiomediastinal contours are unremarkable. Osseous structures are intact. CONCLUSION: No evidence of acute cardiopulmonary disease. Boom Del Rosario MD on May 05, 2017 at 0:23 Board Certified Radiologist. This report was verified electronically.
[2017-05-05] MEDS ORDERED: ACETAMINOPHEN 325 MG TAB PO ONE (00:30)
[2017-05-05 00:42] LABS: AUTOMATED NEUTROPHIL # 14.8 TH/MM3 (1.8-7.7); BASOPHIL # 0.3 TH/MM3 (0-0.2); BASOPHIL % 1.5 % (0.0-2.0); EOSINOPHIL # 0.2 TH/MM3 (0-0.4); EOSINOPHIL % 1.1 % (0.0-4.0); HEMATOCRIT 50.7 % (39.0-51.0); LYMPH % 6.8 % (9.0-44.0); LYMPHOCYTE # 1.2 TH/MM3 (1.0-4.8); MEAN CELL VOLUME 90.8 FL (80.0-100.0); MEAN CORPUSCULAR HEMOGLOBIN 30.5 PG (27.0-34.0); MEAN CORPUSCULAR HGB CONC 33.6 % (32.0-36.0); MONO % 5.5 % (0.0-8.0); NEUT % 85.1 % (16.0-70.0); PLATELET COUNT 217 TH/MM3 (150-450); RED BLOOD COUNT 5.59 MIL/MM3 (4.50-5.90); RED CELL DISTRIBUTION WIDTH 13.4 % (11.6-17.2); WHITE BLOOD COUNT 17.4 TH/MM3 (4.0-11.0)
[2017-05-05 00:50] LABS: BLOOD GAS BASE EXCESS -2.8 mmol/L (-2-2); BLOOD GAS CARBOXYHEMOGLOBIN 1.4 % (0-4); BLOOD GAS HCO3 21 mmol/L (22-26); BLOOD GAS METHEMOGLOBIN 0.9 % (0-2); BLOOD GAS O2 HGB SATURATION 97 % (90-100); BLOOD GAS OXYGEN CONTENT 21.9 Vol % (12.0-20.0); BLOOD GAS PCO2 35 mmHg (38-42); BLOOD GAS PO2 197 mmHg (61-120); BLOOD GAS TOTAL HGB 15.7 G/DL (12.0-16.0); CRITICAL VALUE NO; OXYGEN DEVICE NPPV; TEMP CORR TO 98.6
[2017-05-05 00:51] LABS: DRAW SITE RT RADIAL; FIO2 50 %; NUMBER OF ARTERIAL PUNCTURES 2; STAT YES; ULNAR PULSE PRESENT; VENT SETTINGS IPAP12/EPAP5
[2017-05-05 00:52] LABS: HEMO FLAGS AUTO DIFF
[2017-05-05] MEDS ORDERED: ETOMIDATE 40 MG/20 ML VIAL ONE (00:54)
[2017-05-05] MEDS ORDERED: MIDAZOLAM HCL 2 MG/2 ML VIAL IV PUSH ONE (01:00)
[2017-05-05] MEDS: RESP: ALBUTEROL 2.5 MG/IPRATROPIUM 0.5 MG NEB (SCH) INH ×8 (01:10→23:58)
[2017-05-05] MEDS ORDERED: PROPOFOL 1000 MG/100 ML INJ 100 ML IV PRN (01:15)
[2017-05-05] MEDS ORDERED: SUCCINYLCHOLINE CHLORIDE 200 MG/10 ML VIAL IV PUSH ONE (01:15)
[2017-05-05] MEDS ORDERED: ETOMIDATE 20 MG/10 ML VIAL IVP ONE (01:15)
[2017-05-05] MEDS ORDERED: SODIUM CHLORIDE 0.9% FLUSH 10 ML FLUSH IV FLUSH PRN (01:30)
[2017-05-05] MEDS ORDERED: CHLORHEXIDINE GLUCONATE 2 % 1 PACK (2 CLOTHS) TOP PRN (01:30)
[2017-05-05] MEDS ORDERED: ONDANSETRON HCL 4 MG/2 ML VIAL IV PUSH PRN (01:30)
[2017-05-05] MEDS ORDERED: MIDAZOLAM HCL 2 MG/2 ML VIAL IV PUSH PRN (01:30)
[2017-05-05] MEDS ORDERED: KETAMINE HCL 500 MG/5 ML VIAL IV PUSH ONE ×2 (01:30)
[2017-05-05] MEDS ORDERED: MISCELLANEOUS NURSING INFORMATION XX SCH (01:30)
[2017-05-05] MEDS ORDERED: MORPHINE SULFATE 4 MG/ML INJ IV PUSH PRN (01:30)
--- NOTE | 2017-05-05 01:36 | PD ---
HPI Chief Complaint: Respiratory Distress Time Seen by Provider: 00:04 Travel History International Travel<30 days: No Contact w/Intl Traveler<30days: No Traveled to known affect area: No History of Present Illness HPI 31-year-old male history of asthma arrives by EMS due to shortness of breath and wheezing. The patient used 5 albuterol nebulizers at home. 3 nebulized albuterol treatments en route by EMS employed. EMS notes substantial improvement after administration of CPAP. O2 sats remained in the 90s according to EMS. Pulses high as 160 en route. Patient denies cough and chest pain at the time of ER arrival. He denies any prior intubation. EMS gave epinephrine, 2 mg magnesium and 125 mg Solu-Medrol. PFSH Past Medical History Hx Anticoagulant Therapy: No Asthma: Yes Cardiovascular Problems: No Chemotherapy: No Cerebrovascular Accident: No Diabetes: No Diminished Hearing: No Respiratory: Yes (HX BRONCHITIS, PNA) Tetanus Vaccination: Unknown Past Surgical History Hysterectomy: No Oral Surgery: Yes (JAW SURGERY) Social History Alcohol Use: No Tobacco Use: Yes (05/21- PPD) Substance Use: No Allergies-Medications (Allergen,Severity, Reaction): Coded Allergies: No Known Allergies (Unverified Allergy, Unknown, 05/04/17) Reported Meds & Prescriptions Reported Meds & Active Scripts Active Prednisone 20 Mg Tab 20 Mg PO DIRECTED Take 60 MG daily x 4 days, then 40 MG x 4 days, then 20 MG daily x 4 days. Ventolin Hfa 18 GM Inh (Albuterol Sulfate) 90 Mcg/Act Aer 2 Puff INH Q4-6H PRN Albuterol Neb (Albuterol Sulfate) 2.5 Mg/3 Ml Neb 2.5 Mg NEB Q4HR NEB PRN Symbicort Inh (Budesonide/Formoterol Fumarate) 80-4.5 Mcg/Act Aero 2 Puff INH Q12HR Review of Systems ROS Limitations: Clinical Condition Physical Exam Narrative GENERAL: 31 years old male, well-nourished well-developed moderate to severe respiratory distress SKIN: Warm and dry. HEAD: Atraumatic. Normocephalic. EYES: Pupils equal and round. No scleral icterus. No injection or drainage. ENT: No nasal bleeding or discharge. Mucous membranes pink and moist. NECK: Trachea midline. No JVD. CARDIOVASCULAR: Regular rhythm. Tachycardia to a rate of 160 RESPIRATORY: Tachypnea. Approximately 50 breaths per minute. Poor air movement. Accessory muscle use. GASTROINTESTINAL: Abdomen soft, non-tender, nondistended. Hepatic and splenic margins not palpable. MUSCULOSKELETAL: Extremities without clubbing, cyanosis, or edema. No obvious deformities. NEUROLOGICAL: Awake and alert. No obvious cranial nerve deficits. Motor grossly within normal limits. Five out of 5 muscle strength in the arms and legs. Normal speech. PSYCHIATRIC: Appropriate anxiety. Data Data Last Documented VS Vital Signs Date Time Temp Pulse Resp B/P (MAP) Pulse Ox O2 Delivery O2 Flow Rate FiO2 05/05/17 01:20 100.4 138 23 175/100 (125) 97 Ventilator 05/05/17 01:10 100 Vital signs reviewed Orders Orders Complete Blood Count With Diff (05/05/17 00:04) Basic Metabolic Panel (Bmp) (05/05/17 00:04) Arterial Blood Gas (Abg) (05/05/17 00:04) Iv Access Insert/Monitor (05/05/17 00:04) Electrocardiogram (05/05/17 00:04) Ecg Monitoring (05/05/17 00:04) Oximetry (05/05/17 00:04) Oxygen Administration (05/05/17 00:04) Chest, Single Ap (05/05/17 00:04) Sodium Chloride 0.9% Flush (Ns Flush) (05/05/17 00:15) Resp Bipap / Cpap Non Invas Vt (05/05/17 00:04) Sepsis Workup Initiated (05/05/17 ) Lactic Acid Sepsis Protocol (05/05/17 00:18) Urinalysis - C+S If Indicated (05/05/17 00:18) Influenzae A/B Antigen (05/05/17 00:18) Blood Culture (05/05/17 00:18) Acetaminophen (Tylenol) (05/05/17 00:30) Ceftriaxone Inj (Rocephin Inj) (05/05/17 00:18) Azithromycin Inj (Zithromax Inj) (05/05/17 00:18) Sodium Chlor 0.9% 1000 Ml Inj (Ns 1000 M (05/05/17 00:18) Sodium Chlor 0.9% 1000 Ml Inj (Ns 1000 M (05/05/17 00:18) Sodium Chlor 0.9% 1000 Ml Inj (Ns 1000 M (05/05/17 00:18) Midazolam Inj (Versed Inj) (05/05/17 01:00) Etomidate Inj (Amidate Inj) (05/05/17 00:54) Ng Gastric Tube Insert/Monitor (05/05/17 01:06) Urinary Catheter Insert/Apply (05/05/17 01:06) Etomidate Inj (Amidate Inj) (05/05/17 01:15) Succinylcholine Inj (Quelicin Inj) (05/05/17 01:15) Albuterol-Ipratropium Neb (Duoneb Neb) (05/05/17 01:15) Sodium Chloride 0.9% Flush (Ns Flush) (05/05/17 01:15) Restraints Non-Violent JUVE.Q3H (05/05/17 01:06) Propofol 1000 Mg/100 Ml Inj (Diprivan 10 (05/05/17 01:15) Neurological Rass Scale Q30MX2,Q2HX4,Q4H (05/05/17 01:06) Drug Screen, Random Urine (05/05/17 01:06) Alcohol (Ethanol) (05/05/17 01:06) Chest, Single Ap (05/05/17 ) Admit Order (Ed Use Only) (05/05/17 01:22) Labs Laboratory Tests Test 05/05/17 00:10 05/05/17 00:30 05/05/17 00:43 White Blood Count 17.4 TH/MM3 Red Blood Count 5.59 MIL/MM3 Hemoglobin 17.0 GM/DL Hematocrit 50.7 % Mean Corpuscular Volume 90.8 FL Mean Corpuscular Hemoglobin 30.5 PG Mean Corpuscular Hemoglobin Concent 33.6 % Red Cell Distribution Width 13.4 % Platelet Count 217 TH/MM3 Mean Platelet Volume 8.0 FL Neutrophils (%) (Auto) 85.1 % Lymphocytes (%) (Auto) 6.8 % Monocytes (%) (Auto) 5.5 % Eosinophils (%) (Auto) 1.1 % Basophils (%) (Auto) 1.5 % Neutrophils # (Auto) 14.8 TH/MM3 Lymphocytes # (Auto) 1.2 TH/MM3 Monocytes # (Auto) 1.0 TH/MM3 Eosinophils # (Auto) 0.2 TH/MM3 Basophils # (Auto) 0.3 TH/MM3 CBC Comment AUTO DIFF Differential Total Cells Counted 100 Neutrophils % (Manual) 80 % Band Neutrophils % 7 % Lymphocytes % 11 % Monocytes % 1 % Eosinophils % 1 % Neutrophils # (Manual) 15.1 TH/MM3 Differential Comment FINAL DIFF MANUAL Platelet Estimate NORMAL Platelet Morphology Comment NORMAL Red Cell Morphology Comment NORMAL Blood Urea Nitrogen 23 MG/DL Creatinine 0.92 MG/DL Random Glucose 105 MG/DL Calcium Level 8.0 MG/DL Sodium Level 136 MEQ/L Potassium Level 3.8 MEQ/L Chloride Level 104 MEQ/L Carbon Dioxide Level 24.0 MEQ/L Anion Gap 8 MEQ/L Estimat Glomerular Filtration Rate 95 ML/MIN Ethyl Alcohol Level LESS THAN 3 MG/DL Blood Gas Puncture Site RT RADIAL Blood Gas Patient Temperature 98.6 Blood Gas HCO3 21 mmol/L Blood Gas Base Excess -2.8 mmol/L Blood Gas Oxygen Saturation 97 % Arterial Blood pH 7.40 Arterial Blood Partial Pressure CO2 35 mmHg Arterial Blood Partial Pressure O2 197 mmHg Arterial Blood Oxygen Content 21.9 Vol % Arterial Blood Carboxyhemoglobin 1.4 % Arterial Blood Methemoglobin 0.9 % Blood Gas Hemoglobin 15.7 G/DL Oxygen Delivery Device NPPV Blood Gas Ventilator Setting IPAP12/EPAP5 Blood Gas Inspired Oxygen 50 % Lactic Acid Level 2.8 mmol/L [facility] Medical Decision Making Medical Screen Exam Complete: Yes Emergency Medical Condition: Yes Medical Record Reviewed: Yes Differential Diagnosis Asthma exacerbation, pneumonia, respiratory failure, hypoxia, pneumothorax Narrative Course CBC & BMP Diagram 05/05/17 00:10 Calcium Level 8.0 L AB.40/35/21 and base excess -2.8, ABG PO2 197 on BiPAP 12 over 5 with an FiO2 of 50 EKG shows sinus tachycardia with a rate of 132 Patient was started on BiPAP and improved temporarily. About 45 minutes after his ER arrival the patient became very agitated sitting up on the edge of the bed tripoding with a respiratory rate of about 50. He was diaphoretic. He received Versed 2 mg IV. Shortly thereafter his eyes rolled upwards. So to set remained in the 90s throughout. Due to altered mental status severe respiratory distress and unpredictable ER course the patient was intubated with 7.5 endotracheal tube on the first attempt without difficulty. He received etomidate and succinylcholine. He was sedated with propofol required a 40 mg bolus however became increasingly agitated. Ketamine 100 mg IV have been ordered by Dr. Mary and was given and the patient did remain appropriately sedated and ventilation improved markedly thereafter. About 1 hour after ER intubation the patient self extubated. Immediately thereafter entered the room the patient was speaking in sentences and reported feeling much better and for that reason reintubation was deferred. The case had been discussed with Dr. Mary of the court reporter service and we will still place patient in the [facility]. There is leukocytosis with a neutrophilia. The plain film of the chest is normal. Patient also had a temperature of 101.9. Rocephin and azithromycin started. Critical Care Narrative Aggregate critical care time was 45 minutes. Time to perform other separately billable procedures was not included in the critical care time. My time did not include minutes spent treating any other patients simultaneously or on activities that did not directly contribute to the patient's treatment. The services I provided to this patient were to treat and/or prevent clinically significant deterioration that could result in: Hypoxia brain injury, cardiopulmonary arrest I provided critical care services requiring my management, as noted below: Chart data review, documentation time, medication orders and management, vital sign assessments/reviewing monitor data, ordering and reviewing lab tests, ordering and interpreting/reviewing x-rays and diagnostic studies, care of the patient and discussion of the patient with the admitting physicians. Diagnosis Primary Impression: Respiratory failure Qualified Codes: J96.90 - Respiratory failure, unspecified, unspecified whether with hypoxia or hypercapnia Additional Impressions: Asthma exacerbation Qualified Codes: J45.51 - Severe persistent asthma with (acute) exacerbation Fever Qualified Codes: R50.9 - Fever, unspecified Admitting Information Admitting Physician Requests: Abraham Adame MD May 05, 2017 01:36
[2017-05-05 01:45] LABS: BANDS 7 % (0-6); EOSINOPHILS 1 % (0-4); NEUTROPHIL # MANUAL DIFF 15.1 TH/MM3 (1.8-7.7); POLYS (SEG NEUTROPHILS) 80 % (16-70); WBC DIFF SAMPLE 100
[2017-05-05] MEDS ORDERED: MIDAZOLAM 100 MG/100 ML INJ 100 ML IV PRN (01:45)
[2017-05-05 01:46] LABS: PLATELET ESTIMATE SMEAR NORMAL (NORMAL); PLATELET MORPHOLOGY NORMAL (NORMAL); SCAN/DIFF FINAL DIFF MANUAL
[2017-05-05 01:49] LABS: POTASSIUM 3.8 MEQ/L (3.5-5.1)
--- NOTE | 2017-05-05 01:54 | RADRPT ---
EXAM DATE/TIME: 05/05/2017 01:26 [place] COMPARISON: No previous studies available for comparison. INDICATIONS : E-T tube placement. MEDICAL HISTORY : Asthma SURGICAL HISTORY : None. ENCOUNTER: Subsequent ACUITY: 1 day PAIN SCORE: Non-responsive. LOCATION: Bilateral chest FINDINGS: Lungs remain clear. Patient is now intubated. Endotracheal tube tip is approximately 4 cm above the c anamika. There is a new nasogastric tube courses into the stomach. Heart size stable, normal. CONCLUSION: Interim endotracheal tube and nasogastric tube placement as above. Lungs remain clear. Boom Del Rosario MD on May 05, 2017 at 1:51 Board Certified Radiologist. This report was verified electronically.
[2017-05-05] MEDS: SODIUM CHLORID 0.9% IV SCH ×2 (02:00→07:00)
[2017-05-05] MEDS: KETAMINE IV SCH ×2 (02:00→07:00)
[2017-05-05 03:16] LABS: LACTIC ACID GHOST NOT REPORTABLE
[2017-05-05] MEDS ORDERED: CHLORHEXIDINE GLUCONATE 2 % 1 PACK (2 CLOTHS) TOP SCH (04:00)
[2017-05-05] MEDS: SODIUM CHLOR 0.9% 1000 ML INJ 1,000 ML IV SCH ×2 (04:40→14:07)
[2017-05-05] MEDS: methylPREDNISolone SOD SUCC 125 MG/2 ML VIAL IV PUSH SCH ×4 (04:41→21:07)
--- NOTE | 2017-05-05 06:32 | HHI.HP ---
HPI Service Critical Care Medicine Primary Care Physician Unknown Admission Diagnosis Resp Failure; Asthma Exacerbation Diagnosis: Chief Complaint: I can't breathe. Travel History International Travel<30 Days: No Contact w/Intl Traveler <30 Da: No Traveled to Known Affected Are: No History of Present Illness 31 y/o man well known to us presents with asthma attack. Required solumedrol and epinephrine en route by EMS and intubation following syncopal episode in ED. Early attempt with BiPAP was unsuccessful. Required ketamine, albuterol, and additional steroids to improve. Patient has continued to smoke despite multiple hospital admissions for bronchospasm. Review of Systems Constitutional: DENIES: Diaphoretic episodes, Fatigue, Fever, Weight gain, Weight loss, Chills, Dizziness, Change in appetite, Night Sweats Endocrine: DENIES: Heat/cold intolerance, Polydipsia, Polyuria, Polyphagia Respiratory: COMPLAINS OF: Wheezing, Shortness of breath Cardiovascular: COMPLAINS OF: Syncope Gastrointestinal: DENIES: Abdominal pain, Black stools, Bloody stools, Constipation, Diarrhea, Nausea, Vomiting, Difficulty Swallowing, Anorexia Musculoskeletal: DENIES: Joint pain, Muscle aches, Stiffness, Joint Swelling, Back pain, Neck pain Integumentary: DENIES: Abnormal pigmentation, Nail changes, Pruritus, Rash Past Family Social History Allergies: Coded Allergies: No Known Allergies (Unverified Allergy, Unknown, 05/04/17) Past Medical History PFSH Past Medical History Hx Anticoagulant Therapy: No Asthma: Yes Cardiovascular Problems: No Chemotherapy: No Cerebrovascular Accident: No Diabetes: No Diminished Hearing: No Respiratory: Yes (HX BRONCHITIS, PNA) Tetanus Vaccination: Unknown Past Surgical History Hysterectomy: No Oral Surgery: Yes (JAW SURGERY) Social History Alcohol Use: No Tobacco Use: Yes (1/2-1 PPD) Substance Use: No Allergies-Medications Allergies-Medications (Allergen,Severity, Reaction): Coded Allergies: No Known Allergies (Unverified Allergy, Unknown, 05/04/17) Reported Meds & Prescriptions Reported Meds & Active Scripts Active Prednisone 20 Mg Tab 20 Mg PO DIRECTED Take 60 MG daily x 4 days, then 40 MG x 4 days, then 20 MG daily x 4 days. Ventolin Hfa 18 GM Inh (Albuterol Sulfate) 90 Mcg/Act Aer 2 Puff INH Q4-6H PRN Albuterol Neb (Albuterol Sulfate) 2.5 Mg/3 Ml Neb 2.5 Mg NEB Q4HR NEB PRN Symbicort Inh (Budesonide/Formoterol Fumarate) 80-4.5 Mcg/Act Aero 2 Puff INH Q12HR Physical Exam Vital Signs Vital Signs Date Time Temp Pulse Resp B/P (MAP) Pulse Ox O2 Delivery O2 Flow Rate FiO2 05/05/17 06:00 93 05/05/17 04:00 100.8 104 16 113/56 (75) 97 05/05/17 04:00 104 05/05/17 03:00 112 18 126/67 (86) 98 Nasal Cannula 2.00 05/05/17 02:50 97 Nasal Cannula 2.00 05/05/17 02:30 100.8 106 19 122/72 (89) 100 Ventilator 05/05/17 02:15 118 19 126/60 (82) 100 Ventilator 05/05/17 01:54 126 19 137/68 (91) 100 Ventilator 35 05/05/17 01:45 136 23 135/71 (92) 98 Ventilator 05/05/17 01:20 100.4 138 23 175/100 (125) 97 Ventilator 05/05/17 01:10 100 05/05/17 01:04 97 35 05/05/17 00:51 110 24 181/107 (131) 100 BiPAP 05/05/17 00:21 101.9 05/05/17 00:13 100 BiPAP 50 05/05/17 00:04 127 18 100 BiPAP 50 05/04/17 23:55 128 23 157/96 (116) 100 05/04/17 23:50 100 BiPAP 50 05/04/17 23:50 100 50 Physical Exam P 128, BP 175/100, R 24, Sats 82%, T 100.8 Head: Normal. Neck: Supple, transmitted wheezes. Airway patent. Lungs: Poor air entry and diffuse tight wheezes. Heart: Distant tones, tachycardia. Abdomen: Large, soft, no guarding. Extremities: Warm, well perfused. Neuro: Anxious, moves 4 limbs, nods head to questions. syncopal episode while stressed. Laboratory Laboratory Tests Test 05/05/17 00:10 05/05/17 00:30 05/05/17 00:43 05/05/17 01:25 White Blood Count 17.4 Red Blood Count 5.59 Hemoglobin 17.0 Hematocrit 50.7 Mean Corpuscular Volume 90.8 Mean Corpuscular Hemoglobin 30.5 Mean Corpuscular Hemoglobin Concent 33.6 Red Cell Distribution Width 13.4 Platelet Count 217 Mean Platelet Volume 8.0 Neutrophils (%) (Auto) 85.1 Lymphocytes (%) (Auto) 6.8 Monocytes (%) (Auto) 5.5 Eosinophils (%) (Auto) 1.1 Basophils (%) (Auto) 1.5 Neutrophils # (Auto) 14.8 Lymphocytes # (Auto) 1.2 Monocytes # (Auto) 1.0 Eosinophils # (Auto) 0.2 Basophils # (Auto) 0.3 CBC Comment AUTO DIFF Differential Total Cells Counted 100 Neutrophils % (Manual) 80 Band Neutrophils % 7 Lymphocytes % 11 Monocytes % 1 Eosinophils % 1 Neutrophils # (Manual) 15.1 Differential Comment FINAL DIFF MANUAL Platelet Estimate NORMAL Platelet Morphology Comment NORMAL Red Cell Morphology Comment NORMAL Blood Urea Nitrogen 23 Creatinine 0.92 Random Glucose 105 Calcium Level 8.0 Sodium Level 136 Potassium Level 3.8 Chloride Level 104 Carbon Dioxide Level 24.0 Anion Gap 8 Estimat Glomerular Filtration Rate 95 Ethyl Alcohol Level LESS THAN 3 Blood Gas Puncture Site RT RADIAL Blood Gas Patient Temperature 98.6 Blood Gas HCO3 21 Blood Gas Base Excess -2.8 Blood Gas Oxygen Saturation 97 Arterial Blood pH 7.40 Arterial Blood Partial Pressure CO2 35 Arterial Blood Partial Pressure O2 197 Arterial Blood Oxygen Content 21.9 Arterial Blood Carboxyhemoglobin 1.4 Arterial Blood Methemoglobin 0.9 Blood Gas Hemoglobin 15.7 Oxygen Delivery Device NPPV Blood Gas Ventilator Setting IPAP12/EPAP5 Blood Gas Inspired Oxygen 50 Lactic Acid Level 2.8 Urine Opiates Screen NEG Urine Barbiturates Screen NEG Urine Amphetamines Screen NEG Urine Benzodiazepines Screen NEG Urine Cocaine Screen NEG Urine Cannabinoids Screen NEG Test 05/05/17 03:36 05/05/17 05:31 Nasal Screen MRSA (PCR) MRSA DETECTED Lactic Acid Level 1.7 Date/Time Source Procedure Growth Status 05/05/17 00:45 Blood Peripheral Aerobic Blood Culture Pending Received 05/05/17 00:45 Blood Peripheral Anaerobic Blood Culture Pending Received Result Diagram: 05/05/17 0010 05/05/17 001 Caprini VTE Risk Assessment Caprini VTE Risk Assessment: Mod/High Risk (score >= 2) Caprini Risk Assessment Model Point Value = 1 Point Value = 2 Point Value = 3 Point Value = 5 Age 41-60 Minor surgery BMI > 25 kg/m2 Swollen legs Varicose veins or History of unexplained or recurrent spontaneous Oral contraceptives or hormone replacement Sepsis (< 1 month) Serious lung disease, including pneumonia (< 1 month) Abnormal pulmonary function Acute myocardial infarction Congestive heart failure (< 1 month) History of inflammatory bowel disease Medical patient at bed rest Age 61-74 Arthroscopic surgery Major open surgery (> 45 min) Laparoscopic surgery (> 45 min) Malignancy Confined to bed (> 72 hours) Immobilizing plaster cast Central venous access Age >= 75 History of VTE Family history of VTE Factor V Leiden Prothrombin [id number] Lupus anticoagulant Anticardiolipin antibodies Elevated serum homocysteine Heparin-induced thrombocytopenia Other congenital or acquired thrombophilia Stroke (< 1 month) Elective arthroplasty Hip, pelvis, or leg fracture Acute spinal cord injury (< 1 month) Prophylaxis Regimen Total Risk Factor Score Risk Level Prophylaxis Regimen 0-1 Low Early ambulation 2 Moderate Order ONE of the following: *Sequential Compression Device (SCD) *Heparin 5000 units SQ BID 3-4 Higher Order ONE of the following medications: *Heparin 5000 units SQ TID *Enoxaparin/Lovenox 40 mg SQ daily (WT < 150 kg, CrCl > 30 mL/min) *Enoxaparin/Lovenox 30 mg SQ daily (WT < 150 kg, CrCl > 10-29 mL/min) *Enoxaparin/Lovenox 30 mg SQ BID (WT < 150 kg, CrCl > 30 mL/min) AND/OR *Sequential Compression Device (SCD) 5 or more Highest Order ONE of the following medications: *Heparin 5000 units SQ TID (Preferred with Epidurals) *Enoxaparin/Lovenox 40 mg SQ daily (WT < 150 kg, CrCl > 30 mL/min) *Enoxaparin/Lovenox 30 mg SQ daily (WT < 150 kg, CrCl > 10-29 mL/min) *Enoxaparin/Lovenox 30 mg SQ BID (WT < 150 kg, CrCl > 30 mL/min) AND *Sequential Compression Device (SCD) Assessment and Plan Assessment and Plan Assessment: 1. Status asthmaticus. 2. Hypoxemic respiratory failure. 3. Active smoking history. 4. Fever. Plan: 1. Mechanical ventilation. 2. Continued albuterol nebs. 3. Solumedrol q6h. 4. Ketamine bolus 100 mg and gtt at 100 mg/hr until bronchospasm resolves. 5. Ceftriaxone and Azithromycin. 6. Lovenox 40 sq daily. 7. Pepcid. Overall impression: He arrived critically ill and required intubation and mechanical ventilation following a syncopal episode during inadequate air movement. Improved only after ketamine bolus, despite epinephrine and steroids en route. Critical Care 44 mins Bradley Owens MD May 05, 2017 06:32
[2017-05-05] MEDS: SODIUM CHLORIDE 0.9% FLUSH 10 ML FLUSH IV FLUSH SCH ×2 (08:59→21:07)
[2017-05-05] MEDS: FAMOTIDINE 20 MG/2 ML VIAL IV PUSH SCH ×2 (08:59→21:07)
[2017-05-05] MEDS: ENOXAPARIN SODIUM 40 MG/0.4 ML SYRINGE SQ SCH (08:59)
[2017-05-05] MEDS: cefTRIAXone INJ 1,000 MG in SODIUM CHLORIDE 0.9% INJ 100 ML IV SCH (09:00)
[2017-05-05] MEDS ORDERED: methylPREDNISolone SOD SUCC 125 MG/2 ML VIAL IM SCH (09:00)
[2017-05-05 10:08] LABS: BLOOD, URINE NEG (NEG); COMMENT (UR) CATH-CULT NOT IND; CULTURE IF INDICATED CATH CULTURE NOT IND; GLUCOSE,URINE NEG (NEG); HYALINE CAST, URINE 1 /lpf (RARE); KETONE, URINE NEG (NEG); MUCUS URINE FEW /lpf (OCC); NITRITE,URINE NEG (NEG); SQUAMOUS EPITHELIAL CELL URINE <1 /hpf (0-5); URINE COLOR YELLOW (YELLW/STRAW)
--- NOTE | 2017-05-05 10:43 | EKG ---
Date Performed: 05/04/2017 Time Performed: 23:57:55 PTAGE: 31 years EKG: SINUS TACHYCARDIA ABNORMAL RHYTHM ECG PREVIOUS TRACING : 03/20/2017 02.07 Compared to previous tracing, heart rate has increased. DOCTOR: Gordon Padilla Interpretating Date/Time 05/05/2017 10:41:24
[2017-05-05] MEDS ORDERED: RESP: ALBUTEROL 1.25 MG/3 ML NEB (PRN) NEB (12:30)
[2017-05-05] MEDS ORDERED: SENNOSIDES 8.6 MG TAB PO PRN (12:45)
[2017-05-05] MEDS ORDERED: BISACODYL 10 MG SUPP RECTAL PRN (12:45)
[2017-05-05] MEDS ORDERED: GLUCAGON 1 MG/ML VIAL OTHER PRN (12:45)
[2017-05-05] MEDS ORDERED: LACTULOSE SYRUP 20 GM/30 ML CUP PO PRN (12:45)
[2017-05-05] MEDS ORDERED: MAGNESIUM HYDROXIDE SUSP 30 ML CUP PO PRN (12:45)
[2017-05-05] MEDS ORDERED: DEXTROSE 50% IN WATER 50 ML VIAL(D50) IV PUSH PRN (12:45)
[2017-05-05] MEDS: ACETAMINOPHEN 325 MG TAB PO PRN (14:39)
[2017-05-05] MEDS: INSULIN ASPART SUPPLEMENTAL SCALE SQ SCH ×2 (17:00→21:00)
[2017-05-05] MEDS: AZITHROMYCIN INJ 500 MG in SODIUM CHLOR 0.9% 250 ML INJ 250 ML IV SCH (17:19)
[2017-05-05] MEDS: DOCUSATE SODIUM 50 MG/SENNA 8.6 MG TAB PO SCH (21:06)
[2017-05-06] VITALS (9 sets, daily range): BP systolic 114–131; BP diastolic 54–66; PULSE 80–105; RESP 17–21; TEMP 96.5–98.4; O2SAT 95–99
[2017-05-06] MEDS: methylPREDNISolone SOD SUCC 125 MG/2 ML VIAL IV PUSH SCH ×3 (01:46→13:17)
[2017-05-06] MEDS: RESP: ALBUTEROL 2.5 MG/IPRATROPIUM 0.5 MG NEB (SCH) INH ×5 (03:48→20:26)
[2017-05-06 05:40] LABS: AUTOMATED NEUTROPHIL # 13.1 TH/MM3 (1.8-7.7); BASOPHIL % 0.1 % (0.0-2.0); HEMATOCRIT 36.8 % (39.0-51.0); HEMO FLAGS DIFF FINAL; LYMPH % 4.3 % (9.0-44.0); LYMPHOCYTE # 0.6 TH/MM3 (1.0-4.8); MEAN CELL VOLUME 89.6 FL (80.0-100.0); MEAN CORPUSCULAR HEMOGLOBIN 31.5 PG (27.0-34.0); MEAN CORPUSCULAR HGB CONC 35.1 % (32.0-36.0); MONO % 1.7 % (0.0-8.0); NEUT % 93.9 % (16.0-70.0); PLATELET COUNT 159 TH/MM3 (150-450); RED CELL DISTRIBUTION WIDTH 13.1 % (11.6-17.2)
[2017-05-06] MEDS: cefTRIAXone INJ 1,000 MG in SODIUM CHLORIDE 0.9% INJ 100 ML IV SCH (08:00)
[2017-05-06] MEDS: INSULIN ASPART SUPPLEMENTAL SCALE SQ SCH ×4 (08:00→21:00)
[2017-05-06] MEDS: FAMOTIDINE 20 MG/2 ML VIAL IV PUSH SCH ×2 (08:55→21:00)
[2017-05-06] MEDS: ENOXAPARIN SODIUM 40 MG/0.4 ML SYRINGE SQ SCH (08:55)
[2017-05-06] MEDS: DOCUSATE SODIUM 50 MG/SENNA 8.6 MG TAB PO SCH (08:55)
[2017-05-06] MEDS: SODIUM CHLORIDE 0.9% FLUSH 10 ML FLUSH IV FLUSH SCH (08:56)
--- NOTE | 2017-05-06 11:40 | HHI.PR ---
Subjective Remarks The patient feels very anxious. He says that he gets short of breath and palpitations at times and believes these symptoms may be attributed to anxiety. He still smokes cigarettes. He says he is allergic to cats. He does not have a carriage rider. Family at the bedside. Discussed with nursing. Objective Vitals Vital Signs Date Time Temp Pulse Resp B/P (MAP) Pulse Ox O2 Delivery O2 Flow Rate FiO2 05/06/17 08:19 98 Nasal Cannula 2.00 05/06/17 08:00 97.2 80 20 131/66 (87) 95 05/06/17 04:00 97.4 92 19 114/54 (74) 99 05/06/17 00:01 96 Nasal Cannula 2.00 05/05/17 23:08 98.1 84 18 132/65 (87) 99 05/05/17 21:30 97.0 87 19 130/61 (84) 100 05/05/17 20:24 98 Nasal Cannula 2.00 05/05/17 20:00 100 05/05/17 20:00 98.8 100 22 126/56 (79) 100 05/05/17 18:00 86 05/05/17 16:00 99 05/05/17 16:00 98.4 99 17 110/56 (74) 95 05/05/17 14:00 90 05/05/17 12:00 88 05/05/17 12:00 98.2 88 14 110/62 (78) 96 I/O 05/05/17 05/05/17 05/05/17 05/06/17 05/06/17 05/06/17 07:00 15:00 23:00 07:00 15:00 23:00 Intake Total 250 ml 100 ml 1612 ml 480 ml Output Total 2000 ml 1425 ml Balance -1750 ml 100 ml 187 ml 480 ml Intake Oral 1110 ml 480 ml IV Total 250 ml 100 ml 502 ml Output Urine Total 2000 ml 1425 ml # Voids 1 4 # Bowel Movements 0 0 Result Diagram: 05/06/17 0501 05/05/17 0010 Imaging Last Impressions Chest X-Ray 05/05/17 0004 Signed Impressions: Service Date/Time: Friday, May 05, 2017 00:15 - CONCLUSION: No evidence of acute cardiopulmonary disease. Boom Del Rosario MD Objective Remarks GENERAL: Resting comfortably. SKIN: Warm and dry. HEAD: Atraumatic. Normocephalic. EYES: Pupils equal and round. No scleral icterus. No injection or drainage. ENT: No nasal bleeding or discharge. Mucous membranes pink and moist. NECK: Trachea midline. No JVD. CARDIOVASCULAR: Regular rate and rhythm. RESPIRATORY: No wheezing but poor air entry. GASTROINTESTINAL: Abdomen soft, non-tender, nondistended. Hepatic and splenic margins not palpable. MUSCULOSKELETAL: Extremities without clubbing, cyanosis, or edema. No obvious deformities. NEUROLOGICAL: Awake and alert. No obvious cranial nerve deficits. Motor grossly within normal limits. Five out of 5 muscle strength in the arms and legs. Normal speech. PSYCHIATRIC: Appropriate mood and affect; insight and judgment normal. Medications and IVs Current Medications Medications (Trade) Dose Ordered Sig/Scot Route Start Time Stop Time Status Last Admin (NS Flush) 2 ml UNSCH PRN IV FLUSH 05/05/17 01:30 (NS Flush) 2 ml BID IV FLUSH 05/05/17 09:00 05/06/17 08:56 (Tylenol) 650 mg Q6H PRN PO 05/05/17 01:30 05/05/17 14:39 (Morphine Inj) 2 mg Q2H PRN IV PUSH 05/05/17 01:30 (Pepcid Inj) 20 mg Q12HR IV PUSH 05/05/17 09:00 05/06/17 08:55 (Zofran Inj) 4 mg Q6H PRN IV PUSH 05/05/17 01:30 (Duoneb Neb) 1 ampule Q4HR NEB INH 05/05/17 04:00 05/06/17 08:18 (Lovenox Inj) 40 mg Q24H SQ 05/05/17 09:00 05/06/17 08:55 (SoluMEDROL INJ) 80 mg Q6H IV PUSH 05/05/17 02:00 05/06/17 08:55 Ceftriaxone Sodium 1000 mg/ Sodium Chloride 100 ml @ 200 mls/hr Q24H IV 05/05/17 08:00 05/06/17 08:00 Azithromycin 500 mg/Sodium Chloride 250 ml @ 250 mls/hr Q24H IV 05/05/17 17:00 05/05/17 17:19 (Albuterol Neb) 1.25 mg Q2HR NEB PRN NEB 05/05/17 12:30 (Rupinder-Colace) 1 tab BID PO 05/05/17 21:00 05/06/17 08:55 (Milk Of Magnesia Liq) 30 ml Q12H PRN PO 05/05/17 12:45 (Senokot) 17.2 mg Q12H PRN PO 05/05/17 12:45 (Dulcolax Supp) 10 mg DAILY PRN RECTAL 05/05/17 12:45 (Lactulose Liq) 30 ml DAILY PRN PO 05/05/17 12:45 (D50w (Vial) Inj) 50 ml UNSCH PRN IV PUSH 05/05/17 12:45 (Glucagon Inj) 1 mg UNSCH PRN OTHER 05/05/17 12:45 (NovoLOG SUPPLEMENTAL SCALE) 1 ACHS SLIDING SCALE SQ 05/05/17 17:00 A/P Assessment and Plan Status asthmaticus S/p mechanical ventilation and ketamine bolus. CXR unremarkable. - Continued albuterol nebs standing and as needed. - Solumedrol IV q6h. - continue ceftriaxone and azithromycin. - start loratadine. - incentive spirometry. - pulmonology consult requested. - encourage ambulation. - oxygen as needed. - smoking cessation instruction. Fever Likely s/t above. CXR unremarkable. Blood cultures with NGTD. - continue antibiotics for now. PPx: Carlin Grullon DO May 06, 2017 11:40
[2017-05-06] MEDS: LORATADINE 10 MG TAB PO SCH (13:16)
[2017-05-06] MEDS: ACETAMINOPHEN 325 MG TAB PO PRN (17:26)
[2017-05-06] MEDS: AZITHROMYCIN INJ 500 MG in SODIUM CHLOR 0.9% 250 ML INJ 250 ML IV SCH (17:27)
--- NOTE | 2017-05-06 21:55 | MB ---
cc: BARTOLO HERNANDEZ DATE OF CONSULTATION 05/06/[address] Mary. REASON FOR CONSULTATION Evaluate for asthma and shortness of breath. HISTORY OF THE PRESENT ILLNESS Mr. Glez is a 31-year-old white male with history of asthma with multiple admissions in the past. The patient feels the change of weather makes his breathing worse. He has history of smoking and continues to smoke one pack of cigarettes a day. The patient came to the hospital with sudden worsening of his shortness of breath. He was given epinephrine, Solu-Medrol, did not get better. He was intubated and was given ketamine drip. Now he is extubated, weaned to nasal cannula. He feels his breathing is significantly better. No tightness in his chest. No cough or sputum production. PAST MEDICAL HISTORY History of asthma. MEDICATIONS At home he takes only Albuterol inhaler. Currently he is on: 1. Solu-Medrol 40 mg q.6h. 2. Xanax 0.5 milligrams q.4h 3. Claritin 10 mg a day. 4. Zithromax 500 milligrams day. 5. Lovenox 40 mg a day. 6. Famotidine 20 mg a day. 7. Rocephin 1 gram a day. ALLERGIES NO KNOWN DRUG ALLERGIES. SOCIAL HISTORY He has a history of smoking and continues to smoke one-half pack to one pack of cigarettes a day. Denies alcohol or drug abuse. He does not work. He worked at [employer] a long time ago. FAMILY HISTORY He is . He has one child of his own and two step children. REVIEW OF SYSTEMS Normally he is up, around and active. No hypertension. No DVT or pulmonary embolism. No seizure, stroke or epilepsy. PHYSICAL EXAMINATION GENERAL: Well-built, well-nourished male not in acute distress. VITAL SIGNS: Blood pressure 118/64, heart rate 99, respiration 21, temperature 96.5. HEENT: Examination pupils are equal and reactive to light. Oral mucosa and nasal mucosa normal. NECK: Supple. JVP not raised. CHEST: Air entry equal bilaterally. He has end-expiratory rhonchi. CARDIOVASCULAR: S1-S2 normal. ABDOMEN: Soft. Nontender, nondistended. Bowel sounds are present. EXTREMITIES: No edema. IMPRESSION 1. Bronchial asthma exacerbation. 2. Respiratory failure status post extubation. 3. Nicotine use. 4. Anxiety disorder. PLAN I discussed with the patient and advised him that he must take maintenance inhaler. He has no insurance and finds it difficult to afford it. I advised him to quit smoking. We will continue with IV Solu-Medrol, antibiotic, aerosol treatment. Also start him on Symbicort 160/4.5 two puffs twice a day . Further treatment will depend on the course in the hospital. Thank you Dr. sandoval [facility] hospital. Thank you Dr. Mary for this consultation. MD TITO [place]/FATEMEH /6:47 PM /9:39 PM OLE
[2017-05-07] MEDS: BUDESONIDE-FORMOTEROL 160/4.5 MCG INHALER INH SCH ×2 (01:25→09:17)
[2017-05-07] MEDS: methylPREDNISolone SOD SUCC 125 MG/2 ML VIAL IV PUSH SCH ×3 (01:26→09:18)
[2017-05-07] MEDS: SODIUM CHLORIDE 0.9% FLUSH 10 ML FLUSH IV FLUSH SCH ×2 (01:27→09:16)
[2017-05-07] MEDS: DOCUSATE SODIUM 50 MG/SENNA 8.6 MG TAB PO SCH ×2 (01:28→09:12)
[2017-05-07 01:33] VITALS: O2SAT 97
[2017-05-07] MEDS: RESP: ALBUTEROL 2.5 MG/IPRATROPIUM 0.5 MG NEB (SCH) INH ×5 (01:33→15:36)
[2017-05-07] MEDS: ALPRAZolam 0.5 MG TAB PO PRN ×2 (01:34→09:12)
[2017-05-07 08:00] VITALS: BP 116/59; PULSE 90; RESP 20; TEMP 97.7; O2SAT 97
[2017-05-07] MEDS: INSULIN ASPART SUPPLEMENTAL SCALE SQ SCH (08:00)
[2017-05-07 08:37] VITALS: O2SAT 97
[2017-05-07] MEDS: LORATADINE 10 MG TAB PO SCH (09:12)
[2017-05-07] MEDS: FAMOTIDINE 20 MG/2 ML VIAL IV PUSH SCH (09:13)
[2017-05-07 09:47] LABS: AUTOMATED NEUTROPHIL # 11.3 TH/MM3 (1.8-7.7); HEMATOCRIT 38.3 % (39.0-51.0); HEMO FLAGS DIFF FINAL; LYMPH % 4.8 % (9.0-44.0); LYMPHOCYTE # 0.6 TH/MM3 (1.0-4.8); MEAN CELL VOLUME 90.4 FL (80.0-100.0); MEAN CORPUSCULAR HEMOGLOBIN 31.6 PG (27.0-34.0); MONO % 3.4 % (0.0-8.0); NEUT % 91.8 % (16.0-70.0); PLATELET COUNT 158 TH/MM3 (150-450); RED BLOOD COUNT 4.24 MIL/MM3 (4.50-5.90); RED CELL DISTRIBUTION WIDTH 13.4 % (11.6-17.2); WHITE BLOOD COUNT 12.3 TH/MM3 (4.0-11.0)
[2017-05-07] MEDS: ENOXAPARIN SODIUM 40 MG/0.4 ML SYRINGE SQ SCH (11:07)
[2017-05-07] MEDS: cefTRIAXone INJ 1,000 MG in SODIUM CHLORIDE 0.9% INJ 100 ML IV SCH (11:07)
[2017-05-07 12:00] VITALS: BP 109/59; PULSE 100; RESP 20; TEMP 97.7; O2SAT 97
[2017-05-07] MEDS ORDERED: SYMB160A INH (16:27)
[2017-05-07] MEDS ORDERED: CLAR10TA7 PO (16:27)
[2017-05-07] MEDS ORDERED: ALPR.5 PO (16:27)
[2017-05-07] MEDS ORDERED: VENTAER INH (16:27)
[2017-05-07] MEDS ORDERED: PRED20 PO (16:27)
[2017-05-07] MEDS ORDERED: ALBU0.08 NEB (16:27)
[2017-05-07] MEDS ORDERED: NEBULIZER1 MI1 (16:29)
--- NOTE | 2017-05-07 16:30 | HHI.DCPOC ---
Discharge Care Plan Diagnosis: (1) Asthma exacerbation (2) Bronchitis Goals to Promote Your Health * To prevent worsening of your condition and complications * To maintain your health at the optimal level Directions to Meet Your Goals Take your medications as prescribed Follow your dietary instruction Follow activity as directed Keep your appointments as scheduled Take your immunizations and boosters as scheduled If your symptoms worsen call your PCP, if no PCP go to Urgent Care Center or Emergency Room Smoking is Dangerous to Your Health. Avoid second hand smoke Call the 24-hour hour crisis hotline for domestic abuse at Carlin Brady DO May 07, 2017 16:30
[2017-05-07] MEDS ORDERED: LEVA750T9 PO (16:34)
--- NOTE | 2017-05-07 16:39 | HHI.DS ---
Discharge Summary Admission Date May 05, 2017 at 01:24 Discharge Date: May 07, 2017 Admitting Diagnosis Resp Failure; Asthma Exacerbation (1) Asthma exacerbation ICD Code: J45.901 - Unspecified asthma with (acute) exacerbation Status: Acute (2) Bronchitis ICD Code: J40 - Bronchitis, not specified as acute or chronic Status: Acute Procedures None Brief History - From Admission 31 y/o man well known to us presents with asthma attack. Required solumedrol and epinephrine en route by EMS and intubation following syncopal episode in ED. Early attempt with BiPAP was unsuccessful. Required ketamine, albuterol, and additional steroids to improve. Patient has continued to smoke despite multiple hospital admissions for bronchospasm. CBC/BMP: 05/07/17 0909 05/05/17 0010 Significant Findings Laboratory Tests Test 05/05/17 00:10 05/05/17 00:30 05/05/17 00:43 05/05/17 01:25 White Blood Count 17.4 TH/MM3 (4.0-11.0) Neutrophils (%) (Auto) 85.1 % (16.0-70.0) Lymphocytes (%) (Auto) 6.8 % (9.0-44.0) Neutrophils # (Auto) 14.8 TH/MM3 (1.8-7.7) Monocytes # (Auto) 1.0 TH/MM3 (0-0.9) Basophils # (Auto) 0.3 TH/MM3 (0-0.2) Neutrophils % (Manual) 80 % (16-70) Band Neutrophils % 7 % (0-6) Neutrophils # (Manual) 15.1 TH/MM3 (1.8-7.7) Blood Urea Nitrogen 23 MG/DL (7-18) Calcium Level 8.0 MG/DL (8.5-10.1) Blood Gas HCO3 21 mmol/L (22-26) Blood Gas Base Excess -2.8 mmol/L (-2-2) Arterial Blood Partial Pressure CO2 35 mmHg (38-42) Arterial Blood Partial Pressure O2 197 mmHg (61-120) Arterial Blood Oxygen Content 21.9 Vol % (12.0-20.0) Lactic Acid Level 2.8 mmol/L (0.4-2.0) Urine Mucus FEW /lpf (OCC) Test 05/05/17 03:36 05/05/17 05:31 05/06/17 05:01 05/07/17 09:09 White Blood Count 14.0 TH/MM3 (4.0-11.0) 12.3 TH/MM3 (4.0-11.0) Red Blood Count 4.10 MIL/MM3 (4.50-5.90) 4.24 MIL/MM3 (4.50-5.90) Hemoglobin 12.9 GM/DL (13.0-17.0) Hematocrit 36.8 % (39.0-51.0) 38.3 % (39.0-51.0) Neutrophils (%) (Auto) 93.9 % (16.0-70.0) 91.8 % (16.0-70.0) Lymphocytes (%) (Auto) 4.3 % (9.0-44.0) 4.8 % (9.0-44.0) Neutrophils # (Auto) 13.1 TH/MM3 (1.8-7.7) 11.3 TH/MM3 (1.8-7.7) Lymphocytes # (Auto) 0.6 TH/MM3 (1.0-4.8) 0.6 TH/MM3 (1.0-4.8) Imaging Last Impressions Chest X-Ray 05/05/17 0004 Signed Impressions: Service Date/Time: Friday, May 05, 2017 00:15 - CONCLUSION: No evidence of acute cardiopulmonary disease. Boom Del Rosario MD PE at Discharge GENERAL: Resting comfortably. SKIN: Warm and dry. HEAD: Atraumatic. Normocephalic. EYES: Pupils equal and round. No scleral icterus. No injection or drainage. ENT: No nasal bleeding or discharge. Mucous membranes pink and moist. NECK: Trachea midline. No JVD. CARDIOVASCULAR: Regular rate and rhythm. RESPIRATORY: No wheezing, improved air entry. GASTROINTESTINAL: Abdomen soft, non-tender, nondistended. Hepatic and splenic margins not palpable. MUSCULOSKELETAL: Extremities without clubbing, cyanosis, or edema. No obvious deformities. NEUROLOGICAL: Awake and alert. No obvious cranial nerve deficits. Motor grossly within normal limits. Five out of 5 muscle strength in the arms and legs. Normal speech. PSYCHIATRIC: Appropriate mood and affect; insight and judgment normal. Pt update on day of discharge The patient said he was feeling a lot better. He said he has been off of oxygen since this morning. He has been ambulating. He wanted to go home. Hospital Course Status asthmaticus S/p mechanical ventilation and ketamine bolus for bronchospasm. CXR unremarkable. He was extubated and was tolerating room air. He was continued on albuterol nebs standing and as needed. He received IV Solumedrol. He was continued on ceftriaxone and azithromycin. We started loratadine for allergies. He received incentive spirometry. Pulmonology was consulted. We encouraged ambulation. He received smoking cessation instruction. He was started on Symbicort. He will have a home oxygen walk test prior to discharge. He will follow up with pulmonology as an outpt. Fever CXR unremarkable. Blood cultures with NGTD. Has been afebrile. He will complete a course of PO Levaquin. Pt Condition on Discharge: Stable Discharge Disposition: Discharge Home Discharge Time: > 30 minutes Discharge Instructions DIET: Follow Instructions for: As Tolerated, No Restrictions Activities you can perform: Weight Bearing as Nhan Follow up Referrals: PCP Follow-up - 1 Week Pulmonology - 1 Week New Medications: Budesonide-Formoterol Inh (Symbicort Inh) 160-4.5 Mcg/Act Aero 2 PUFF INH Q12HR, #1 INHALER 0 Refills Levofloxacin (Levaquin) 750 Mg Tablet 750 MG PO DAILY for Infection, #4 TAB 0 Refills Nebulizer (Nebulizer) 1 Mis Mis EA .ROUTE DIRECTED for Breathing Treatment, #1 0 Refills Alprazolam (Xanax) 0.5 Mg Tab 0.5 MG PO Q4H PRN for anxiety, #12 TAB Loratadine (Claritin) 10 Mg Tablet 10 MG PO DAILY for Allergies, #30 TAB Continued Medications: Albuterol 18 GM Inh (Ventolin Hfa 18 GM Inh) 90 Mcg/Act Aer 2 PUFF INH Q4-6H PRN for SHORTNESS OF BREATH, #2 INHALER 0 Refills (This prescription has been renewed) Albuterol Neb (Albuterol Neb) 2.5 Mg/3 Ml Neb 2.5 MG NEB Q4HR NEB PRN for SHORTNESS OF BREATH, #60 NEBULE 0 Refills (This prescription has been renewed) Prednisone (Prednisone) 20 Mg Tab 20 MG PO DIRECTED for Broncospasm, #24 TAB 0 Refills (This prescription has been renewed) Take 60 MG daily x 4 days, then 40 MG x 4 days, then 20 MG daily x 4 days. Discontinued Medications: Budesonide-Formoterol Inh (Symbicort Inh) 80-4.5 Mcg/Act Aero 2 PUFF INH Q12HR for Asthma Management, #1 INHALER 0 Refills Carlin Brady DO May 07, 2017 16:39
== END 2017-05-07 18:53 | disposition home or self-care (01) | DRG 208 ==
LOC: NEPE 23:49 → NEDA 05-05 01:24 → HIME 05-05 03:20 → N06B 05-05 21:28
PROVIDERS: ADMIT Hospitalist; ATTEND Hospitalist
PROC: 5A1935Z Respiratory Ventilation, Less than 24 Consecutive Hours (ICD-10-PCS; principal; 2017-05-05)
PROC: 0BH17EZ Insertion of Endotracheal Airway into Trachea, Via Natural or Artificial Opening (ICD-10-PCS; 2017-05-05)
PROC: 5A09357 Assistance with Respiratory Ventilation, Less than 24 Consecutive Hours, Continuous Positive Airway Pressure (ICD-10-PCS; 2017-05-05)
DX: J96.91 Respiratory failure, unspecified with hypoxia (principal); J45.902 Unspecified asthma with status asthmaticus; F17.210 Nicotine dependence, cigarettes, uncomplicated; Z79.52 Long term (current) use of systemic steroids; F41.9 Anxiety disorder, unspecified
CPT/HCPCS: 31500; 36600; 43753; 51702; 71010; 80048; 80307; 81001; 82805; 82948; 83605; 85007; 85025; 85027; 87040; 87076; 87185; 87205; 87641; 93005; 94003; 94150; 94620; 94640; 94664; 96360; 96361; 96374; J0330; J0456; J0696; J1650; J1815; J2250; J2930; J7030; J7050

== ENCOUNTER 2017-05-08 16:20 | Inpatient (IN) | payer MEDICAID ==
[~2017-05-08 16:20] MED LIST changes: +ALPR.5 PO; -AZIT500T2 PO; +CLAR10TA7 PO; +LEVA750T9 PO; -MONT10TA2 PO; +NEBULIZER1 MI1; +SYMB160A INH; -SYMB80AE INH
[2017-05-08 16:21] VITALS: BP 149/76; PULSE 72; RESP 14; TEMP 98.7; O2SAT 99
--- NOTE | 2017-05-08 18:58 | PD ---
HPI Chief Complaint: Abnormal Results Time Seen by Provider: 18:49 Travel History International Travel<30 days: No Contact w/Intl Traveler<30days: No Traveled to known affect area: No History of Present Illness HPI 31-year-old male with history of asthma with recent admission for asthma exacerbation requiring intubation, discharged yesterday, told to return today for positive blood cultures. Patient had blood cultures performed which grew out gram-positive cocci in pairs and clusters. He denies IV drug use. Denies fevers or chills. No chest pain or dyspnea. Otherwise feels well. PFSH Past Medical History Hx Anticoagulant Therapy: No Asthma: Yes Autoimmune Disease: No Cancer: No Cardiovascular Problems: No Chemotherapy: No Cerebrovascular Accident: No Diabetes: No Diminished Hearing: No Endocrine: No Genitourinary: No Immune Disorder: No Musculoskeletal: No Neurologic: No Psychiatric: No Reproductive: No Respiratory: Yes (HX BRONCHITIS, PNA) Past Surgical History Hysterectomy: No Oral Surgery: Yes (JAW SURGERY) Social History Alcohol Use: No Tobacco Use: Yes (1/2-1 PPD) Substance Use: No Allergies-Medications (Allergen,Severity, Reaction): Coded Allergies: No Known Allergies (Unverified Allergy, Unknown, 05/08/17) Reported Meds & Prescriptions Reported Meds & Active Scripts Active Levaquin (Levofloxacin) 750 Mg Tablet 750 Mg PO DAILY Nebulizer 1 Mis Mis Ea .ROUTE DIRECTED Symbicort Inh (Budesonide/Formoterol Fumarate) 160-4.5 Mcg/Act Aero 2 Puff INH Q12HR Xanax (Alprazolam) 0.5 Mg Tab 0.5 Mg PO Q4H PRN Claritin (Loratadine) 10 Mg Tablet 10 Mg PO DAILY Prednisone 20 Mg Tab 20 Mg PO DIRECTED Take 60 MG daily x 4 days, then 40 MG x 4 days, then 20 MG daily x 4 days. Ventolin Hfa 18 GM Inh (Albuterol Sulfate) 90 Mcg/Act Aer 2 Puff INH Q4-6H PRN Albuterol Neb (Albuterol Sulfate) 2.5 Mg/3 Ml Neb 2.5 Mg NEB Q4HR NEB PRN Review of Systems Except as stated in HPI: all other systems reviewed are Neg Physical Exam Narrative GENERAL: Well-developed, well-nourished, comfortable, no apparent distress. SKIN: Focused skin assessment warm/dry. No areas of cellulitis or abscess. HEAD: Atraumatic. Normocephalic. EYES: Pupils equal and round. No scleral icterus. No injection or drainage. ENT: Mucous membranes pink and moist. NECK: Trachea midline. No JVD. CARDIOVASCULAR: Regular rate and rhythm. No murmur appreciated. RESPIRATORY: No accessory muscle use. Clear to auscultation. Breath sounds equal bilaterally. GASTROINTESTINAL: Abdomen soft, non-tender, nondistended. MUSCULOSKELETAL: No obvious deformities. No clubbing. No cyanosis. No edema. NEUROLOGICAL: Awake and alert. No obvious cranial nerve deficits. Motor grossly within normal limits. Normal speech. PSYCHIATRIC: Appropriate mood and affect; insight and judgment normal. Data Data Last Documented VS Vital Signs Date Time Temp Pulse Resp B/P (MAP) Pulse Ox O2 Delivery O2 Flow Rate FiO2 05/08/17 16:21 98.7 72 14 149/76 (100) 99 Orders Orders Complete Blood Count With Diff (05/08/17 17:21) Basic Metabolic Panel (Bmp) (05/08/17 17:21) Blood Culture (05/08/17 17:21) Vancomycin Inj (Vancomycin Inj) (05/08/17 19:00) Labs Laboratory Tests Test 05/08/17 20:35 White Blood Count 8.2 TH/MM3 Red Blood Count 4.12 MIL/MM3 Hemoglobin 12.6 GM/DL Hematocrit 37.1 % Mean Corpuscular Volume 90.2 FL Mean Corpuscular Hemoglobin 30.7 PG Mean Corpuscular Hemoglobin Concent 34.0 % Red Cell Distribution Width 13.1 % Platelet Count 154 TH/MM3 Mean Platelet Volume 7.3 FL Neutrophils (%) (Auto) 65.6 % Lymphocytes (%) (Auto) 24.9 % Monocytes (%) (Auto) 9.0 % Eosinophils (%) (Auto) 0.1 % Basophils (%) (Auto) 0.4 % Neutrophils # (Auto) 5.4 TH/MM3 Lymphocytes # (Auto) 2.0 TH/MM3 Monocytes # (Auto) 0.7 TH/MM3 Eosinophils # (Auto) 0.0 TH/MM3 Basophils # (Auto) 0.0 TH/MM3 CBC Comment DIFF FINAL Differential Comment MDM Medical Decision Making Medical Screen Exam Complete: Yes Emergency Medical Condition: Yes Medical Record Reviewed: Yes Differential Diagnosis Bacteremia, sepsis Narrative Course Vital signs show heart rate 72, blood pressure 149/76, pulse ox 99% on room air , tympanic temp of 98.7F. CBC is essentially unremarkable. The patient was started on IV vancomycin and will be admitted for further treatment and evaluation of bacteremia with blood cultures positive for gram- positive cocci in pairs and clusters. Diagnosis Primary Impression: Positive blood culture Admitting Information Admitting Physician Requests: Admit Angel Medina MD May 08, 2017 18:58
[2017-05-08] MEDS ORDERED: VANCOMYCIN INJ 1,000 MG in SODIUM CHLOR 0.9% 250 ML INJ 250 ML IV ONE (19:00)
[2017-05-08 20:53] LABS: AUTOMATED NEUTROPHIL # 5.4 TH/MM3 (1.8-7.7); BASOPHIL % 0.4 % (0.0-2.0); EOSINOPHIL % 0.1 % (0.0-4.0); HEMATOCRIT 37.1 % (39.0-51.0); HEMO FLAGS DIFF FINAL; LYMPH % 24.9 % (9.0-44.0); MEAN CELL VOLUME 90.2 FL (80.0-100.0); MEAN CORPUSCULAR HEMOGLOBIN 30.7 PG (27.0-34.0); NEUT % 65.6 % (16.0-70.0); PLATELET COUNT 154 TH/MM3 (150-450); RED BLOOD COUNT 4.12 MIL/MM3 (4.50-5.90); RED CELL DISTRIBUTION WIDTH 13.1 % (11.6-17.2); WHITE BLOOD COUNT 8.2 TH/MM3 (4.0-11.0)
[2017-05-08 21:14] LABS: BICARBONATE 30.8 MEQ/L (21.0-32.0); POTASSIUM 3.3 MEQ/L (3.5-5.1)
[2017-05-08] MEDS ORDERED: ACETAMINOPHEN 325 MG TAB PO PRN (21:15)
[2017-05-08] MEDS ORDERED: NALOXONE HCL 0.4 MG/ML AMP IV PUSH PRN (21:15)
[2017-05-08] MEDS ORDERED: ONDANSETRON HCL 4 MG/2 ML VIAL IVP PRN (21:15)
[2017-05-08] MEDS ORDERED: SODIUM CHLORIDE 0.9% FLUSH 10 ML FLUSH IV FLUSH PRN (21:15)
[2017-05-08] MEDS ORDERED: Vancomycin Consult Pharmacy 1 EA OTHER SCH (21:30)
[2017-05-08] MEDS: ALPRAZolam 0.5 MG TAB PO PRN (22:22)
[2017-05-08] MEDS ORDERED: VANCOMYCIN 1,000 MG/NS 250 ML IV ONE ×2 (22:45)
[2017-05-08 23:00] VITALS: BP 130/75; PULSE 72; RESP 18; TEMP 97.9; O2SAT 97
[2017-05-09] VITALS (7 sets, daily range): BP systolic 108–128; BP diastolic 56–77; PULSE 67–87; RESP 16–24; TEMP 97.6–98.4; O2SAT 95–100
[2017-05-09] MEDS: RESP: ALBUTEROL 2.5 MG/IPRATROPIUM 0.5 MG NEB (PRN) NEB ×2 (00:24→07:14)
[2017-05-09] MEDS ORDERED: POTASSIUM CHLORIDE 20 MEQ CONTROLLED RELEASE TAB PO ONE ×2 (05:15→12:00)
--- NOTE | 2017-05-09 05:17 | HHI.HP ---
[facility]ician No Primary Care Physician Admission Diagnosis positive blood culture Diagnoses: Travel History International Travel<30 Days: No Contact w/Intl Traveler <30 Da: No Traveled to Known Affected Are: No History of Present Illness 31-year-old male with a past medical history significant for asthma, admitted and intubated on 05/05 for acute asthma exacerbation, returns to the emergency department after blood cultures obtained during his previous hospitalization were positive for gram-positive cocci in pairs and clusters. The patient was discharged on Levaquin and has been compliant. He reports some mild shortness of breath and a cough productive of dark brown sputum. He denies any fever/ chills. Review of Systems Denies fever or chills Denies blurry vision, otorrhea, rhinorrhea Denies sore throat, positive cough No chest pain, palpitations, positive shortness of breath No abdominal pain Denies constipation/diarrhea/nausea/vomiting Denies muscle pain/weakness No rashes Past Family Social History Past Medical History Asthma Past Surgical History Previous jaw surgery Reported Medications Reported Meds & Active Scripts Active Levaquin (Levofloxacin) 750 Mg Tablet 750 Mg PO DAILY Nebulizer 1 Mis Mis Ea .ROUTE DIRECTED Symbicort Inh (Budesonide/Formoterol Fumarate) 160-4.5 Mcg/Act Aero 2 Puff INH Q12HR Xanax (Alprazolam) 0.5 Mg Tab 0.5 Mg PO Q4H PRN Claritin (Loratadine) 10 Mg Tablet 10 Mg PO DAILY Prednisone 20 Mg Tab 20 Mg PO DIRECTED Take 60 MG daily x 4 days, then 40 MG x 4 days, then 20 MG daily x 4 days. Ventolin Hfa 18 GM Inh (Albuterol Sulfate) 90 Mcg/Act Aer 2 Puff INH Q4-6H PRN Albuterol Neb (Albuterol Sulfate) 2.5 Mg/3 Ml Neb 2.5 Mg NEB Q4HR NEB PRN Allergies: Coded Allergies: No Known Allergies (Unverified Allergy, Unknown, 05/08/17) Family History Negative for CAD/DM Social History Continues to smoke 1 pack per day times approximately 7 years. Rare alcohol use. Takes 4 mg of Suboxone twice daily. This medication is not prescribed. Physical Exam Vital Signs Vital Signs Date Time Temp Pulse Resp B/P (MAP) Pulse Ox O2 Delivery O2 Flow Rate FiO2 05/09/17 01:28 97.6 87 18 108/56 (73) 96 05/08/17 23:00 97.9 72 18 130/75 (93) 97 05/08/17 22:17 05/08/17 16:21 98.7 72 14 149/76 (100) 99 Physical Exam GENERAL: male lying in bed SKIN: No rashes, ecchymoses or lesions. Cool and dry. HEAD: Atraumatic. Normocephalic. No temporal or scalp tenderness. EYES: Pupils equal round and reactive. Extraocular motions intact. No scleral icterus. No injection or drainage. ENT: Nose without bleeding, purulent drainage or septal hematoma. Throat without erythema, tonsillar hypertrophy or exudate. Uvula midline. Airway patent. NECK: Trachea midline. No JVD or lymphadenopathy. Supple, nontender, no meningeal signs. CARDIOVASCULAR: Regular rate and rhythm without murmurs, gallops, or rubs. RESPIRATORY: Clear to auscultation. Breath sounds equal bilaterally. No wheezes , rales, or rhonchi. GASTROINTESTINAL: Abdomen soft, non-tender, nondistended. No hepato-splenomegaly , or palpable masses. No guarding. MUSCULOSKELETAL: Extremities without clubbing, cyanosis, or edema. No joint tenderness, effusion, or edema noted. No calf tenderness. NEUROLOGICAL: Awake and alert. Cranial nerves II through XII intact. Motor and sensory grossly within normal limits. Normal speech. Laboratory Laboratory Tests Test 05/08/17 20:35 White Blood Count 8.2 Red Blood Count 4.12 Hemoglobin 12.6 Hematocrit 37.1 Mean Corpuscular Volume 90.2 Mean Corpuscular Hemoglobin 30.7 Mean Corpuscular Hemoglobin Concent 34.0 Red Cell Distribution Width 13.1 Platelet Count 154 Mean Platelet Volume 7.3 Neutrophils (%) (Auto) 65.6 Lymphocytes (%) (Auto) 24.9 Monocytes (%) (Auto) 9.0 Eosinophils (%) (Auto) 0.1 Basophils (%) (Auto) 0.4 Neutrophils # (Auto) 5.4 Lymphocytes # (Auto) 2.0 Monocytes # (Auto) 0.7 Eosinophils # (Auto) 0.0 Basophils # (Auto) 0.0 CBC Comment DIFF FINAL Differential Comment Blood Urea Nitrogen 20 Creatinine 0.67 Random Glucose 79 Calcium Level 8.2 Sodium Level 142 Potassium Level 3.3 Chloride Level 104 Carbon Dioxide Level 30.8 Anion Gap 7 Estimat Glomerular Filtration Rate 137 Date/Time Source Procedure Growth Status 05/08/17 18:50 Blood Peripheral Aerobic Blood Culture Pending Received 05/08/17 18:50 Blood Peripheral Anaerobic Blood Culture Pending Received Result Diagram: 05/08/17203405/08/172034 Caprini VTE Risk Assessment Caprini VTE Risk Assessment: No/Low Risk (score <= 1) Caprini Risk Assessment Model Point Value = 1 Point Value = 2 Point Value = 3 Point Value = 5 Age 41-60 Minor surgery BMI > 25 kg/m2 Swollen legs Varicose veins or History of unexplained or recurrent spontaneous Oral contraceptives or hormone replacement Sepsis (< 1 month) Serious lung disease, including pneumonia (< 1 month) Abnormal pulmonary function Acute myocardial infarction Congestive heart failure (< 1 month) History of inflammatory bowel disease Medical patient at bed rest Age 61-74 Arthroscopic surgery Major open surgery (> 45 min) Laparoscopic surgery (> 45 min) Malignancy Confined to bed (> 72 hours) Immobilizing plaster cast Central venous access Age >= 75 History of VTE Family history of VTE Factor V Leiden Prothrombin [id number] Lupus anticoagulant Anticardiolipin antibodies Elevated serum homocysteine Heparin-induced thrombocytopenia Other congenital or acquired thrombophilia Stroke (< 1 month) Elective arthroplasty Hip, pelvis, or leg fracture Acute spinal cord injury (< 1 month) Prophylaxis Regimen Total Risk Factor Score Risk Level Prophylaxis Regimen 0-1 Low Early ambulation 2 Moderate Order ONE of the following: *Sequential Compression Device (SCD) *Heparin 5000 units SQ BID 3-4 Higher Order ONE of the following medications: *Heparin 5000 units SQ TID *Enoxaparin/Lovenox 40 mg SQ daily (WT < 150 kg, CrCl > 30 mL/min) *Enoxaparin/Lovenox 30 mg SQ daily (WT < 150 kg, CrCl > 10-29 mL/min) *Enoxaparin/Lovenox 30 mg SQ BID (WT < 150 kg, CrCl > 30 mL/min) AND/OR *Sequential Compression Device (SCD) 5 or more Highest Order ONE of the following medications: *Heparin 5000 units SQ TID (Preferred with Epidurals) *Enoxaparin/Lovenox 40 mg SQ daily (WT < 150 kg, CrCl > 30 mL/min) *Enoxaparin/Lovenox 30 mg SQ daily (WT < 150 kg, CrCl > 10-29 mL/min) *Enoxaparin/Lovenox 30 mg SQ BID (WT < 150 kg, CrCl > 30 mL/min) AND *Sequential Compression Device (SCD) Assessment and Plan Assessment and Plan Assessment/plan: 1. Positive blood cultures 1/2 blood cultures positive for gram-positive cocci in pairs and clusters Repeat blood cultures pending Follow cultures Vancomycin Monitor for signs of sepsis 2. Asthma with recent hospitalization Continue Symbicort Duo nebs Continue Levaquin Continue prednisone 3. Suboxone abuse Patient reports he does not have withdrawal symptoms upon cessation Cessation counseling provided 4. Tobacco abuse Cessation counseling provided FEN Regular diet Electrolytes: PO potassium supplementation, monitor Physician Certification 2 Midnight Certification Type: Admission for Inpatient Services Order for Inpatient Services The services are ordered in accordance with Medicare regulations or non- Medicare payer requirements, as applicable. In the case of services not specified as inpatient-only, they are appropriately provided as inpatient services in accordance with the 2-midnight benchmark. Estimated LOS (days): 2 2 days is the estimated time the patient will need to remain in the hospital, assuming treatment plan goals are met and no additional complications. Post-Hospital Plan: Not yet determined Klaudia Xavier MD May 09, 2017 05:17
[2017-05-09] MEDS: VANCOMYCIN INJ 1,250 MG in SODIUM CHLOR 0.9% 250 ML INJ 250 ML IV SCH ×3 (06:27→23:13)
--- NOTE | 2017-05-09 09:14 | RADRPT ---
EXAM DATE/TIME: 05/09/2017 09:06 [place] COMPARISON: CHEST PA & LAT, September 12, 2016, 23:42. INDICATIONS : Shortness of breath. Evaluate for pneumonia. Abnormal lab results- positive blood culture. MEDICAL HISTORY : Asthma. SURGICAL HISTORY : None. ENCOUNTER: Initial ACUITY: 2 days PAIN SCORE: 0/10 LOCATION: Bilateral chest FINDINGS: PA and lateral views of the chest demonstrate the lungs to be symmetrically aerated without evidence of mass, infiltrate or effusion. The cardiomediastinal contours are unremarkable. Osseous structure s are intact. CONCLUSION: Normal examination. David Iniguez MD on May 09, 2017 at 9:12 Board Certified Radiologist. This report was verified electronically.
[2017-05-09 09:33] LABS: AUTOMATED NEUTROPHIL # 2.6 TH/MM3 (1.8-7.7); EOSINOPHIL # 0.1 TH/MM3 (0-0.4); EOSINOPHIL % 1.8 % (0.0-4.0); HEMATOCRIT 36.4 % (39.0-51.0); HEMO FLAGS DIFF FINAL; LYMPHOCYTE # 1.3 TH/MM3 (1.0-4.8); MEAN CELL VOLUME 90.9 FL (80.0-100.0); MEAN CORPUSCULAR HEMOGLOBIN 31.3 PG (27.0-34.0); MEAN CORPUSCULAR HGB CONC 34.4 % (32.0-36.0); MONO % 6.8 % (0.0-8.0); NEUT % 60.4 % (16.0-70.0); PLATELET COUNT 131 TH/MM3 (150-450); RED BLOOD COUNT 4.01 MIL/MM3 (4.50-5.90); RED CELL DISTRIBUTION WIDTH 13.4 % (11.6-17.2); WHITE BLOOD COUNT 4.3 TH/MM3 (4.0-11.0)
[2017-05-09] MEDS: predniSONE 20 MG TAB PO SCH (09:37)
[2017-05-09] MEDS: LORATADINE 10 MG TAB PO SCH (09:37)
[2017-05-09] MEDS: LEVOFLOXACIN 750 MG TAB PO SCH (09:37)
[2017-05-09] MEDS: SODIUM CHLORIDE 0.9% FLUSH 10 ML FLUSH IV FLUSH SCH ×2 (09:42→21:27)
[2017-05-09] MEDS: BUDESONIDE-FORMOTEROL 160/4.5 MCG INHALER INH SCH ×2 (09:52→21:26)
[2017-05-09] MEDS: ALPRAZolam 0.5 MG TAB PO PRN ×3 (09:52→23:11)
[2017-05-09 09:55] LABS: BICARBONATE 30.4 MEQ/L (21.0-32.0); POTASSIUM 3.5 MEQ/L (3.5-5.1)
[2017-05-10 03:28] VITALS: BP 125/59; PULSE 90; RESP 18; TEMP 98.4; O2SAT 96
[2017-05-10] MEDS ORDERED: PHARMACY ORDERED LAB ONE (05:45)
[2017-05-10] MEDS: VANCOMYCIN INJ 1,250 MG in SODIUM CHLOR 0.9% 250 ML INJ 250 ML IV SCH ×2 (05:50→14:46)
[2017-05-10 07:51] VITALS: BP 113/59; PULSE 63; RESP 18; TEMP 98.3; O2SAT 97
[2017-05-10] MEDS: LORATADINE 10 MG TAB PO SCH (09:08)
[2017-05-10] MEDS: SODIUM CHLORIDE 0.9% FLUSH 10 ML FLUSH IV FLUSH SCH (09:08)
[2017-05-10] MEDS: predniSONE 20 MG TAB PO SCH (09:08)
[2017-05-10] MEDS: LEVOFLOXACIN 750 MG TAB PO SCH (09:08)
[2017-05-10] MEDS: RESP: ALBUTEROL 2.5 MG/IPRATROPIUM 0.5 MG NEB (PRN) NEB (09:11)
[2017-05-10] MEDS: BUDESONIDE-FORMOTEROL 160/4.5 MCG INHALER INH SCH (09:35)
[2017-05-10] MEDS: ALPRAZolam 0.5 MG TAB PO PRN ×2 (09:35→14:37)
[2017-05-10 11:41] VITALS: BP 131/77; PULSE 80; RESP 24; TEMP 98.2; O2SAT 98
[2017-05-10 12:39] LABS: BICARBONATE 31.2 MEQ/L (21.0-32.0)
[2017-05-10] MEDS ORDERED: ALBUTEROL SULFATE 90 MCG/ACT HFA 8 GM INHALER INH PRN (12:45)
[2017-05-10 15:37] VITALS: BP 135/76; PULSE 85; RESP 24; TEMP 98.7; O2SAT 96
--- NOTE | 2017-05-10 16:47 | HHI.PR ---
Subjective Remarks The patient was feeling well and wanted to go home soon. He said that he might end up leaving AMA later on today for personal reasons. He denied any acute complaints. Ambulating well. Requested an inhaler. Objective Vitals Vital Signs Date Time Temp Pulse Resp B/P (MAP) Pulse Ox O2 Delivery O2 Flow Rate FiO2 05/10/17 15:37 98.7 85 24 135/76 (95) 96 05/10/17 11:41 98.2 80 24 131/77 (95) 98 05/10/17 07:51 98.3 63 18 113/59 (77) 97 05/10/17 03:28 98.4 90 18 125/59 (81) 96 05/09/17 23:20 98.1 71 16 127/75 (92) 100 05/09/17 20:14 98.4 76 16 125/77 (93) 98 I/O 05/09/17 05/09/17 05/09/17 05/10/17 05/10/17 05/10/17 07:00 15:00 23:00 07:00 15:00 23:00 Intake Total 1500 ml Output Total 1625 ml Balance -125 ml Intake Oral 1500 ml Output Urine Total 1625 ml # Voids 3 3 2 3 Result Diagram: 05/09/17 0837 05/10/17 1146 Imaging Last Impressions Chest X-Ray 05/09/17 0000 Signed Impressions: Service Date/Time: April 09:06 - CONCLUSION: Normal examination. David Iniguez MD Objective Remarks GENERAL: No distress. SKIN: Warm and dry. HEAD: Atraumatic. Normocephalic. EYES: Pupils equal and round. No scleral icterus. No injection or drainage. ENT: No nasal bleeding or discharge. Mucous membranes pink and moist. NECK: Trachea midline. No JVD. CARDIOVASCULAR: Regular rate and rhythm. RESPIRATORY: No wheezing but decreased air entry. GASTROINTESTINAL: Abdomen soft, non-tender, nondistended. Hepatic and splenic margins not palpable. MUSCULOSKELETAL: Extremities without clubbing, cyanosis, or edema. No obvious deformities. NEUROLOGICAL: Awake and alert. No obvious cranial nerve deficits. Motor grossly within normal limits. Five out of 5 muscle strength in the arms and legs. Normal speech. PSYCHIATRIC: Appropriate mood and affect; insight and judgment normal. Medications and IVs Current Medications Medications (Trade) Dose Ordered Sig/Scot Route Start Time Stop Time Status Last Admin (NS Flush) 2 ml UNSCH PRN IV FLUSH 05/08/17 21:15 (NS Flush) 2 ml BID IV FLUSH 05/09/17 09:00 05/10/17 09:08 (Tylenol) 650 mg Q4H PRN PO 05/08/17 21:15 (Zofran Inj) 4 mg Q6H PRN IVP 05/08/17 21:15 (Narcan Inj) 0.4 mg UNSCH PRN IV PUSH 05/08/17 21:15 Pharmacy Profile Note 0 ml @ 0 mls/hr UNSCH OTHER 05/08/17 21:30 (Duoneb Neb) 1 ampule Q4HR NEB PRN NEB 05/08/17 21:30 05/10/17 09:11 (Xanax) 0.5 mg Q4H PRN PO 05/08/17 21:30 05/10/17 14:37 (Symbicort 160-4.5 Mcg Inh) 2 puff Q12HR INH 05/09/17 09:00 05/10/17 09:35 (Levaquin) 750 mg DAILY PO 05/09/17 09:00 05/10/17 09:08 (Claritin) 10 mg DAILY PO 05/09/17 09:00 05/10/17 09:08 (Deltasone) 60 mg DAILY PO 05/09/17 09:00 05/12/17 08:59 05/10/17 09:08 (Deltasone) 40 mg DAILY PO 05/12/17 09:00 05/16/17 08:59 (Deltasone) 20 mg DAILY PO 05/16/17 09:00 05/20/17 08:59 Vancomycin HCl 1250 mg/Sodium Chloride 262.5 ml @ 250 mls/hr Q8HR IV 05/09/17 06:00 05/10/17 14:46 Miscellaneous Information SPECIFIC LAB TO BE ... ONCE ONCE .XX 05/12/17 05:45 05/12/17 05:46 (Proair Hfa Inh) 2 puff Q4H PRN INH 05/10/17 12:45 05/10/17 14:45 A/P Assessment and Plan Positive blood cultures One anaerobic blood cultures from last admission positive for gram-positive cocci in pairs and clusters. Repeat blood cultures NGTD. - Follow speciation, repeat cultures. - continue IV Vancomycin. - the pt stated he will likely be leaving AMA today as he has personal issues to attend to. - ID consult in AM if pt remains in the hospital. Asthma With recent hospitalization and intubation. - Continue Symbicort. - Duo nebs/ Proair as needed. - Continue Levaquin. - Continue prednisone. Suboxone abuse Patient reports he does not have withdrawal symptoms upon cessation. - Cessation counseling provided. Tobacco abuse - Cessation counseling provided. PPx: Ambulation Discharge Planning The pt voices his wish to leave the hospital AMA. Carlin Brady DO May 10, 2017 16:47
--- NOTE | 2017-05-11 09:09 | HHI.DCPOC ---
Discharge Care Plan Diagnosis: (1) Bacteremia (2) Asthma (3) Pneumonia Goals to Promote Your Health * To prevent worsening of your condition and complications * To maintain your health at the optimal level Directions to Meet Your Goals Take your medications as prescribed Follow your dietary instruction Follow activity as directed Keep your appointments as scheduled Take your immunizations and boosters as scheduled If your symptoms worsen call your PCP, if no PCP go to Urgent Care Center or Emergency Room Smoking is Dangerous to Your Health. Avoid second hand smoke Call the 24-hour hour crisis hotline for domestic abuse at Carlin Brady DO May 11, 2017 09:09
--- NOTE | 2017-05-11 09:10 | PD.AMA ---
Against Medical Advice Note Diagnosis: (1) Bacteremia (2) Pneumonia (3) Asthma Discharge Disposition: Against Medical Advice Pt Condition on Discharge: Stable Recommended Treatment Course Await speciation of prior blood cultures and repeat blood culture results AMA Statement Patient Nick Glez has decided to leave the hospital against medical advice. This patient has the capacity to refuse care and understands the risks of leaving, including permanent disability and/or , and has had an opportunity to ask questions about his condition. The patient has been informed that he may return for care at any time, and follow up has been arranged/ advised. Carlin Brady DO May 11, 2017 09:10
[2017-05-12] MEDS ORDERED: PHARMACY ORDERED LAB ONE (05:45)
[2017-05-12] MEDS ORDERED: predniSONE 20 MG TAB PO SCH (09:00)
[2017-05-16] MEDS ORDERED: predniSONE 20 MG TAB PO SCH (09:00)
== END 2017-05-10 18:24 | disposition left against medical advice (07) | DRG 871 ==
LOC: NEPD 16:20 → NEDA 21:09 → OBSVTOIN 21:18 → NEPFCDU 22:18
PROVIDERS: ADMIT Hospitalist; ATTEND Hospitalist
DX: R78.81 Bacteremia (principal); J18.9 Pneumonia, unspecified organism; F11.10 Opioid abuse, uncomplicated; J45.909 Unspecified asthma, uncomplicated; F17.210 Nicotine dependence, cigarettes, uncomplicated
CPT/HCPCS: 71020; 80048; 80202; 83735; 85025; 87040; 94640; 94664; 96365; J3370; J7050; J7512

== ENCOUNTER 2017-07-14 18:12 | Emergency (ER) | payer MEDICAID, OTHER ==
[~2017-07-14] VITALS: Ht 175.3 cm; Wt 89.0 kg
[2017-07-14 18:14] VITALS: BP 122/67; PULSE 105; RESP 18; TEMP 98.2; O2SAT 98
[2017-07-14] MEDS ORDERED: AZITHROMYCIN INJ 500 MG in SODIUM CHLOR 0.9% 250 ML INJ 250 ML IV ONE (18:30)
[2017-07-14] MEDS ORDERED: methylPREDNISolone SOD SUCC 125 MG/2 ML VIAL IV PUSH ONE (18:30)
[2017-07-14] MEDS ORDERED: SODIUM CHLORIDE 0.9% FLUSH 10 ML FLUSH IVF PRN (18:30)
--- NOTE | 2017-07-14 18:31 | PD ---
HPI Chief Complaint: Respiratory Symptoms Time Seen by Provider: 18:28 Travel History International Travel<30 days: No Contact w/Intl Traveler<30days: No Traveled to known affect area: No History of Present Illness HPI Patient presents with complaints of dyspnea cough and end expiratory wheeze for approximately 2 weeks. Positive tobacco use. Denies any nausea vomiting diarrhea or fever. Denies any history of COPD, questionable asthma history. Denies any new rash. Denies any chest pain urinary or bowel symptoms. PFSH Past Medical History Hx Anticoagulant Therapy: No Asthma: Yes Autoimmune Disease: No Blood Disorders: No Anxiety: Yes Heart Rhythm Problems: No Cancer: No Cardiovascular Problems: No High Cholesterol: No Chemotherapy: No Chest Pain: No Congestive Heart Failure: No COPD: No Cerebrovascular Accident: No Diabetes: No Diminished Hearing: No Endocrine: No Genitourinary: No Immune Disorder: No Musculoskeletal: No Neurologic: No Psychiatric: No Reproductive: No Respiratory: Yes Sleep Apnea: No Past Surgical History Hysterectomy: No Oral Surgery: Yes (JAW SURGERY) Social History Alcohol Use: No Tobacco Use: Yes (2-1 PPD) Substance Use: Yes (HEROINE ) Allergies-Medications (Allergen,Severity, Reaction): Coded Allergies: No Known Allergies (Unverified Allergy, Unknown, 07/14/17) Reported Meds & Prescriptions Reported Meds & Active Scripts Active Ventolin Hfa 18 GM Inh (Albuterol Sulfate) 90 Mcg/Act Aer 2 Puff INH Q4-6H PRN Albuterol Neb (Albuterol Sulfate) 2.5 Mg/3 Ml Neb 2.5 Mg NEB Q4HR NEB PRN Review of Systems General / Constitutional: No: Fever Eyes: No: Visual changes HENT: No: Headaches Cardiovascular: No: Chest Pain or Discomfort Respiratory: Positive: Cough, Shortness of Breath, Wheezing Gastrointestinal: No: Abdominal Pain Genitourinary: No: Dysuria Musculoskeletal: No: Pain Skin: No Rash Neurologic: No: Weakness Psychiatric: No: Depression Endocrine: No: Polydipsia Hematologic/Lymphatic: No: Easy Bruising Physical Exam Narrative GENERAL: Well-nourished, well-developed patient. SKIN: Focused skin assessment warm/dry. HEAD: Normocephalic. EYES: No scleral icterus. No injection or drainage. NECK: Supple, trachea midline. No JVD or lymphadenopathy. CARDIOVASCULAR: Regular rate and rhythm without murmurs, gallops, or rubs. RESPIRATORY: Decreased breath sounds in all toure with scattered and expiratory wheeze. No accessory muscle use. GASTROINTESTINAL: Abdomen soft, non-tender, nondistended. MUSCULOSKELETAL: No cyanosis, or edema. BACK: Nontender without obvious deformity. No CVA tenderness. Data Data Last Documented VS Vital Signs Date Time Temp Pulse Resp B/P (MAP) Pulse Ox O2 Delivery O2 Flow Rate FiO2 07/14/17 18:39 92 21 07/14/17 18:14 98.2 105 18 122/67 (85) Orders Orders Complete Blood Count With Diff (07/14/17 18:28) Influenzae A/B Antigen (07/14/17 18:28) Iv Access Insert/Monitor (07/14/17 18:28) Ecg Monitoring (07/14/17 18:28) Oximetry (07/14/17 18:28) Oxygen Administration (07/14/17 18:28) Chest, Single Ap (07/14/17 18:28) Sodium Chloride 0.9% Flush (Ns Flush) (07/14/17 18:30) Methylprednisolone So Succ Inj (Solumedr (07/14/17 18:30) Albuterol-Ipratropium Neb (Duoneb Neb) (07/14/17 18:30) Azithromycin Inj (Zithromax Inj) (07/14/17 18:30) Labs Laboratory Tests Test 07/14/17 18:40 White Blood Count 7.0 TH/MM3 Red Blood Count 4.92 MIL/MM3 Hemoglobin 14.5 GM/DL Hematocrit 43.3 % Mean Corpuscular Volume 88.0 FL Mean Corpuscular Hemoglobin 29.5 PG Mean Corpuscular Hemoglobin Concent 33.5 % Red Cell Distribution Width 12.0 % Platelet Count 284 TH/MM3 Mean Platelet Volume 7.1 FL Neutrophils (%) (Auto) 59.1 % Lymphocytes (%) (Auto) 25.5 % Monocytes (%) (Auto) 4.6 % Eosinophils (%) (Auto) 9.6 % Basophils (%) (Auto) 1.2 % Neutrophils # (Auto) 4.1 TH/MM3 Lymphocytes # (Auto) 1.8 TH/MM3 Monocytes # (Auto) 0.3 TH/MM3 Eosinophils # (Auto) 0.7 TH/MM3 Basophils # (Auto) 0.1 TH/MM3 CBC Comment DIFF FINAL Differential Comment MDM Medical Decision Making Medical Screen Exam Complete: Yes Emergency Medical Condition: Yes Differential Diagnosis Asthma exacerbation, pneumonia, upper respiratory infection Narrative Course Assessment and plan discussed with patient at bedside. Physician Communication Physician Communication Case discussed and care transferred to Chano Taylor MD Jul 14, 2017 18:31
[2017-07-14 18:33] VITALS: O2SAT 95
[2017-07-14] MEDS: RESP: ALBUTEROL 2.5 MG/IPRATROPIUM 0.5 MG NEB (SCH) INH ×2 (18:36→18:37)
[2017-07-14 18:39] VITALS: O2SAT 92
[2017-07-14 18:49] LABS: AUTOMATED NEUTROPHIL # 4.1 TH/MM3 (1.8-7.7); BASOPHIL # 0.1 TH/MM3 (0-0.2); BASOPHIL % 1.2 % (0.0-2.0); EOSINOPHIL # 0.7 TH/MM3 (0-0.4); EOSINOPHIL % 9.6 % (0.0-4.0); HEMATOCRIT 43.3 % (39.0-51.0); HEMOGLOBIN 14.5 GM/DL (13.0-17.0); LYMPH % 25.5 % (9.0-44.0); LYMPHOCYTE # 1.8 TH/MM3 (1.0-4.8); MEAN CORPUSCULAR HEMOGLOBIN 29.5 PG (27.0-34.0); MEAN CORPUSCULAR HGB CONC 33.5 % (32.0-36.0); MEAN PLATELET VOLUME 7.1 FL (7.0-11.0); MONO % 4.6 % (0.0-8.0); MONOCYTE # 0.3 TH/MM3 (0-0.9); NEUT % 59.1 % (16.0-70.0); PLATELET COUNT 284 TH/MM3 (150-450); RED BLOOD COUNT 4.92 MIL/MM3 (4.50-5.90)
--- NOTE | 2017-07-14 19:21 | RADRPT ---
EXAM DATE/TIME: 07/14/2017 19:04 [facility] COMPARISON: No previous studies available for comparison. INDICATIONS : Shortness of breath. MEDICAL HISTORY : Asthma. SURGICAL HISTORY : None. ENCOUNTER: Initial ACUITY: 1 day PAIN SCORE: 0/10 LOCATION: Bilateral chest FINDINGS: A single view of the chest demonstrates the lungs to be symmetrically aerated without evidence of mas s, infiltrate or effusion. The cardiomediastinal contours are unremarkable. Osseous structures are intact. CONCLUSION: No acute disease. Abdiel Plummer MD on July 14, 2017 at 19:19 Board Certified Radiologist. This report was verified electronically.
[2017-07-14] MEDS ORDERED: PRED50 PO (19:29)
[2017-07-14] MEDS ORDERED: ALBU0.08 NEB (19:29)
[2017-07-14] MEDS ORDERED: BENZ100 PO (19:29)
[2017-07-14] MEDS ORDERED: ZITHTAB PO (19:29)
--- NOTE | 2017-07-14 19:30 | PD ---
Physical Exam Date Seen by Provider: Jul 14, 2017 Time Seen by Provider: 19:00 Narrative He signed out to me by Dr. Sanz at 7 PM, please see his notes for further details. Patient is here because of asthma, coughing for the last 2 weeks, suspected to have some underlying bronchitis. He was given nebulizers and Zithromax in the ER. On reevaluation at 7:25 PM, he is feeling improved, no longer is wheezing. Laboratory Tests Test 07/14/17 18:40 Eosinophils (%) (Auto) 9.6 % (0.0-4.0) Eosinophils # (Auto) 0.7 TH/MM3 (0-0.4) Chest x-ray did not show significant pneumonia. Lab work was otherwise unremarkable. At this point, my plan would be to release him with further treatment for his coughing and bronchitis. Return for any worsening in symptoms as necessary. The plan has been discussed with him he states understanding. Data Data Last Documented VS Vital Signs Date Time Temp Pulse Resp B/P (MAP) Pulse Ox O2 Delivery O2 Flow Rate FiO2 07/14/17 18:39 92 21 07/14/17 18:14 98.2 105 18 122/67 (85) Orders Orders Complete Blood Count With Diff (07/14/17 18:28) Influenzae A/B Antigen (07/14/17 18:28) Iv Access Insert/Monitor (07/14/17 18:28) Ecg Monitoring (07/14/17 18:28) Oximetry (07/14/17 18:28) Oxygen Administration (07/14/17 18:28) Chest, Single Ap (07/14/17 18:28) Sodium Chloride 0.9% Flush (Ns Flush) (07/14/17 18:30) Methylprednisolone So Succ Inj (Solumedr (07/14/17 18:30) Albuterol-Ipratropium Neb (Duoneb Neb) (07/14/17 18:30) Azithromycin Inj (Zithromax Inj) (07/14/17 18:30) Ed Discharge Order (07/14/17 19:25) Labs Laboratory Tests Test 07/14/17 18:40 White Blood Count 7.0 TH/MM3 Red Blood Count 4.92 MIL/MM3 Hemoglobin 14.5 GM/DL Hematocrit 43.3 % Mean Corpuscular Volume 88.0 FL Mean Corpuscular Hemoglobin 29.5 PG Mean Corpuscular Hemoglobin Concent 33.5 % Red Cell Distribution Width 12.0 % Platelet Count 284 TH/MM3 Mean Platelet Volume 7.1 FL Neutrophils (%) (Auto) 59.1 % Lymphocytes (%) (Auto) 25.5 % Monocytes (%) (Auto) 4.6 % Eosinophils (%) (Auto) 9.6 % Basophils (%) (Auto) 1.2 % Neutrophils # (Auto) 4.1 TH/MM3 Lymphocytes # (Auto) 1.8 TH/MM3 Monocytes # (Auto) 0.3 TH/MM3 Eosinophils # (Auto) 0.7 TH/MM3 Basophils # (Auto) 0.1 TH/MM3 CBC Comment DIFF FINAL Differential Comment MDM Medical Record Reviewed: Yes Supervised Visit with RED: Yes Diagnosis Primary Impression: Bronchitis Med/Other Pt SpecificInfo: Prescription(s) given Scripts Benzonatate (Tessalon Perles) 100 Mg Cap 100 MG PO TID Y for COUGH, #15 CAP 0 Refills Prov: Janis eBrry MD 07/14/17 Azithromycin (Zithromax Z-Donta) 250 Mg Dspk 250 MG PO DIRECTED for Infection, #1 DSPK 0 Refills 500 MG (2 tabs) day 1, then 1 tab days 2-5. Prov: Janis Berry MD 07/14/17 Prednisone (Prednisone) 50 Mg Tab 50 MG PO DAILY for 5 Days, #5 TAB 0 Refills Prov: Janis Berry MD 07/14/17 Albuterol Neb (Albuterol Neb) 2.5 Mg/3 Ml Neb 2.5 MG NEB Q4HR NEB Y for SHORTNESS OF BREATH, #60 NEBULE 0 Refills Prov: Janis Berry MD 07/14/17 Disposition: 01 DISCHARGE HOME Condition: Stable Janis Berry MD Jul 14, 2017 19:30
[2017-07-14 19:47] VITALS: BP 113/74; PULSE 90; RESP 18; O2SAT 96
== END 2017-07-14 20:07 | disposition home or self-care (01) ==
LOC: PHED 18:12
DX: J40 Bronchitis, not specified as acute or chronic (principal); J45.909 Unspecified asthma, uncomplicated; F41.9 Anxiety disorder, unspecified; F17.200 Nicotine dependence, unspecified, uncomplicated; Z79.51 Long term (current) use of inhaled steroids
CPT/HCPCS: 71045; 85025; 87804; 94640; 94664; 96365; 96375; 99284; J0456; J2930; J7050

== ENCOUNTER 2017-09-20 14:17 | Emergency (ER) | payer SELFPAY ==
[~2017-09-20] VITALS: Ht 175.3 cm; Wt 86.0 kg
[~2017-09-20 14:17] MED LIST changes: -ALPR.5 PO; +BENZ100 PO; -CLAR10TA7 PO; -LEVA750T9 PO; -NEBULIZER1 MI1; -PRED20 PO; +PRED50 PO; -SYMB160A INH; +ZITHTAB PO
[2017-09-20 14:18] VITALS: BP 113/65; PULSE 78; RESP 18; TEMP 98; O2SAT 95
--- NOTE | 2017-09-20 14:35 | PD ---
HPI Chief Complaint: Respiratory Symptoms Time Seen by Provider: 14:28 Travel History International Travel<30 days: No Contact w/Intl Traveler<30days: No Traveled to known affect area: No History of Present Illness HPI 32yo M with PMH of asthma presents to the ED with c/o sob intermittently for 3 weeks. Said he has been using his albuterol and it gets better but comes back and worst at night. +Cough. Denies any fever, chest pain, n/v, abdominal pain , focal weakness or numbness. Feels like his asthma. Almost out of medication. PFSH Past Medical History Hx Anticoagulant Therapy: No Asthma: Yes Autoimmune Disease: No Blood Disorders: No Anxiety: Yes Heart Rhythm Problems: No Cancer: No Cardiovascular Problems: No High Cholesterol: No Chemotherapy: No Chest Pain: No Congestive Heart Failure: No COPD: No Cerebrovascular Accident: No Diabetes: No Diminished Hearing: No Endocrine: No Genitourinary: No Immune Disorder: No Musculoskeletal: No Neurologic: No Psychiatric: No Reproductive: No Respiratory: Yes Sleep Apnea: No Tetanus Vaccination: Unknown ?: Not Past Surgical History Hysterectomy: No Oral Surgery: Yes (JAW SURGERY) Social History Alcohol Use: No Tobacco Use: Yes (1/2-1 PPD) Substance Use: Yes (HEROINE ) Allergies-Medications (Allergen,Severity, Reaction): Coded Allergies: No Known Allergies (Unverified Allergy, Unknown, 09/20/17) Reported Meds & Prescriptions Reported Meds & Active Scripts Active Flovent Hfa 12 GM Inh (Fluticasone Propionate) 110 Mcg/Act Inh 2 Puff INH BID Albuterol Neb (Albuterol Sulfate) 2.5 Mg/3 Ml Neb 2.5 Mg NEB Q4HR NEB PRN Prednisone 50 Mg Tab 50 Mg PO DAILY 5 Days Albuterol Neb (Albuterol Sulfate) 2.5 Mg/3 Ml Neb 2.5 Mg NEB Q4HR NEB PRN Ventolin Hfa 18 GM Inh (Albuterol Sulfate) 90 Mcg/Act Aer 2 Puff INH Q4-6H PRN Review of Systems Except as stated in HPI: all other systems reviewed are Neg Physical Exam Narrative GENERAL: [-] SKIN: Focused skin assessment warm/dry. HEAD: Atraumatic. Normocephalic. EYES: Pupils equal and round. No scleral icterus. No injection or drainage. ENT: No nasal bleeding or discharge. Mucous membranes pink and moist. NECK: Trachea midline. No JVD. CARDIOVASCULAR: Regular rate and rhythm. No murmur appreciated. RESPIRATORY: No accessory muscle use. Clear to auscultation. Breath sounds equal bilaterally. GASTROINTESTINAL: Abdomen soft, non-tender, nondistended. Hepatic and splenic margins not palpable. MUSCULOSKELETAL: No obvious deformities. No clubbing. No cyanosis. No edema. NEUROLOGICAL: Awake and alert. No obvious cranial nerve deficits. Motor grossly within normal limits. Normal speech. PSYCHIATRIC: Appropriate mood and affect; insight and judgment normal. Data Data Last Documented VS Vital Signs Date Time Temp Pulse Resp B/P (MAP) Pulse Ox O2 Delivery O2 Flow Rate FiO2 09/20/17 16:09 85 16 125/70 (88) 94 Room Air 09/20/17 14:18 98.0 Orders Orders Albuterol-Ipratropium Neb (Duoneb Neb) (09/20/17 14:45) Prednisone (Deltasone) (09/20/17 14:45) Chest, Pa & Lat (09/20/17 ) Ed Discharge Order (09/20/17 17:15) Mandatory Outpatient Referral (09/20/17 17:19) [facility] Medical Decision Making Medical Screen Exam Complete: Yes Emergency Medical Condition: Yes Differential Diagnosis Asthma exacerbation vs. bronchitis vs. pneumonia Narrative Course 32yo M with asthma here with sob and cough for 3 weeks. Symptoms are worst at night. Feels like his asthma. Pt given duonebs x3 and prednisone. O2 sat goes down to 93% when lying down and up to 96% when sitting up so CXR ordered. CXR showed no acute cardiopulmonary disease. Pt reevaluated at bedside and feels better. Denies any sob now. Pt is still a cig smoker even with long history of asthma and does not have primary care physician. He has a nebulizer machine and asking for medications for the machine instead since it is cheaper than the pump. Pt is speaking in complete sentences and wants to go home so will try outpatient therapy first. Strict return precautions given. Mandatory referral for pulmonology ordered since pt has multiple hospitalizations for asthma and no follow up because of no insurance. Diagnosis Primary Impression: Asthma exacerbation Qualified Codes: J45.41 - Moderate persistent asthma with (acute) exacerbation Patient Instructions: General Instructions Departure Forms: Tests/Procedures Additional Instructions: Please follow up with [facility] this week. Please return to the ED if symptoms worsen. Med/Other Pt SpecificInfo: Prescription(s) given Scripts Fluticasone 12 GM Inh (Flovent Hfa 12 GM Inh) 110 Mcg/Act Inh 2 PUFF INH BID for Asthma Management, #1 INHALER 0 Refills Prov: Lina Cowart DO 09/20/17 Albuterol Neb (Albuterol Neb) 2.5 Mg/3 Ml Neb 2.5 MG NEB Q4HR NEB Y for SHORTNESS OF BREATH, #30 NEBULE 0 Refills Prov: Lina Cowart DO 09/20/17 Prednisone (Prednisone) 50 Mg Tab 50 MG PO DAILY for 5 Days, #5 TAB 0 Refills Prov: Lina Cowart DO 09/20/17 Disposition: 01 DISCHARGE HOME Condition: Stable Lina Cowart DO September 20, 2017 14:35
[2017-09-20] MEDS: RESP: ALBUTEROL 2.5 MG/IPRATROPIUM 0.5 MG NEB (SCH) INH (14:41)
[2017-09-20] MEDS ORDERED: predniSONE 50 MG TAB PO ONE (14:45)
[2017-09-20 16:09] VITALS: BP 125/70; PULSE 85; RESP 16; O2SAT 94
--- NOTE | 2017-09-20 16:28 | RADRPT ---
EXAM DATE/TIME: 09/20/2017 16:17 [facility] COMPARISON: CHEST PA & LAT, May 09, 2017, 9:06. INDICATIONS : Shortness of breath. MEDICAL HISTORY : Asthma SURGICAL HISTORY : None. ENCOUNTER: Initial ACUITY: 1 day PAIN SCORE: 0/10 LOCATION: Bilateral chest FINDINGS: PA and lateral views of the chest demonstrate the lungs to be symmetrically aerated without evidence of mass, infiltrate or effusion. The cardiomediastinal contours are unremarkable. Osseous structure s are intact. CONCLUSION: 1. No acute cardiopulmonary disease. Terry Dawn MD on September 20, 2017 at 16:26 Board Certified Radiologist. This report was verified electronically.
[2017-09-20] MEDS ORDERED: FLUTI110I INH (17:14)
[2017-09-20] MEDS ORDERED: PRED50 PO (17:14)
[2017-09-20] MEDS ORDERED: ALBU0.08 NEB (17:14)
[2017-09-20 17:22] VITALS: BP 125/70
== END 2017-09-20 17:23 | disposition home or self-care (01) ==
LOC: PHEFT 14:17
DX: J45.901 Unspecified asthma with (acute) exacerbation (principal); F41.9 Anxiety disorder, unspecified; F17.200 Nicotine dependence, unspecified, uncomplicated; Z79.51 Long term (current) use of inhaled steroids
CPT/HCPCS: 71046; 94640; 94664; 99283; J7512